=== PATIENT | male | born 1990 | race Two or more races ===

== ENCOUNTER 2021-07-08 13:14 | Inpatient (IN) | payer SELFPAY ==
[~2021-07-08] VITALS: Ht 180.3 cm; Wt 68.8 kg
[2021-07-08] MEDS ORDERED: ACETAMINOPHEN 500 MG TABLET PO ONE (14:00)
[2021-07-08] MEDS ORDERED: DEXAMETHASONE SOD PHOS 20 MG/5 ML VIAL. IV ONE (14:00)
[2021-07-08] MEDS ORDERED: PIPERACILLIN/TAZOBACTAM 4.5 GM in IV NORMAL SALINE 100ML 100 ML IV ONE (14:00)
[2021-07-08 14:08] LABS: BASO % 0 % (0-3); EOS % 0 % (0-3); HEMATOCRIT 39.4 % (39.0-53.0); HEMOGLOBIN 13.8 g/dL (13.0-17.5); LYMPH # 0.8 x10^3/uL (1.0-4.8); LYMPH % 10 % (24-48); MEAN CORPUSCULAR HEMOGLOBIN 31 pg (25-35); MEAN CORPUSCULAR HGB CONC 35 g/dL (31-37); MEAN CORPUSCULAR VOLUME 88 fL (79-100); MONO # 0.3 x10^3/uL (0.0-1.1); MONO % 3 % (0-9); NEUT # 7.7 x10^3/uL (1.8-7.7); NEUT % 87 % (31-73); PLATELET COUNT 257 x10^3/uL (140-400); RED BLOOD COUNT 4.48 x10^6/uL (4.30-5.70); RED CELL DISTRIBUTION WIDTH 12.8 % (11.5-14.5); WHITE BLOOD COUNT 8.9 x10^3/uL (4.0-11.0)
--- NOTE | 2021-07-08 14:09 | RAD ---
Exam Date: 07/08/2021 1:47 PM XR CHEST 1V Indication: Reason: fever / Spl. Instructions: / History: . FINDINGS/ IMPRESSION: Lung volumes are low. The cardiac silhouette is likely normal in size, taking into consideration low lung volumes and luis carlos ble technique. Infiltrates are seen in the lung bases bilaterally and in the right upper lobe consis tent with multifocal pneumonia. Follow-up chest radiographs to resolution following treatment are re commended. There is no appreciable pleural effusion or pneumothorax. Electronically signed by: Ken Stark MD (07/08/2021 2:07 PM) [id number]
[2021-07-08 14:23] LABS: CALCIUM 8.5 mg/dL (8.5-10.1); CREATININE 0.9 mg/dL (0.7-1.3); GFR 99.1; POTASSIUM 4.1 mmol/L (3.5-5.1)
[2021-07-08] MEDS: IV NORMAL SALINE 1000ML BAG 1,000 ML IV SCH ×3 (14:26→19:16)
[2021-07-08 14:29] LABS: ALBUMIN/GLOBULIN RATIO 0.6 (1.0-1.7); MAGNESIUM 2.2 mg/dL (1.8-2.4); TOTAL BILIRUBIN 0.3 mg/dL (0.2-1.0); TOTAL PROTEIN 7.9 g/dL (6.4-8.2)
[2021-07-08 14:45] LABS: % BANDS 2 % (0-9); % LYMPHS 11 % (24-48); % MONOS 1 % (0-10); % SEGS 86 % (35-66); PLT ESTIMATE ADEQUATE (ADEQUATE)
--- NOTE | 2021-07-08 15:35 | PDOC1 ---
History and Physical Date of Service: DOS: DATE: 07/08/21 TIME: 15:34 Chief Complaint: Chief Complain: Shortness of breath History of Present Illness: HPI: Patient is a 31-year-old Gambian-speaking male with no significant past medical history who presents to the ED with shortness of breath a few days ago but definitely got worse today.. He was actually tested for Covid 9 days ago by sending service. It came back positive a few days ago. When EMS came to pick him up he was found to be 84% on room air at home. Patient currently denies any fevers, abdominal pain, chest pain, dysuria or bloody stools or diarrhea. Patient is not vaccinated for Covid. Past Medical/Surgical History: PMH/PSH: No pertinent past medical or surgical history. Allergies: Allergies: Coded Allergies: No Known Drug Allergies (Unverified , 07/08/21) Family History: Family History: Reviewed with no relevant findings Social History: Social History: Denies alcohol, tobacco or drug abuse Current Medications: Current Medications Current Medications Sodium Chloride 1,000 ml @ 1,860 mls/hr Q33M IV Last administered on 07/08/21at 15:18; Start 07/08/21 at 14:00; Stop 07/08/21 at 15:00; Status DC Piperacillin Sod/ Tazobactam Sod 4.5 gm/Sodium Chloride 100 ml @ 200 mls/hr 1X ONCE IV Last administered on 07/08/21at 14:27; Start 07/08/21 at 14:00; Stop 07/08/21 at 14:29; Status DC Dexamethasone Sodium Phosphate (Decadron) 10 mg 1X ONCE IV Last administered on 07/08/21at 14:26; Start 07/08/21 at 14:00; Stop 07/08/21 at 14:01; Status DC Acetaminophen (Tylenol) 1,000 mg 1X ONCE PO Last administered on 07/08/21at 14:25; Start 07/08/21 at 14:00; Stop 07/08/21 at 14:01; Status DC ROS: Review of Systems Review of System REVIEW OF SYSTEMS: GENERAL: Denies weakness SKIN: No bruising, hair changes or rashes. EYES: No blurred, double or loss of vision. NOSE AND THROAT: No history of nosebleeds, hoarseness or sore throat. HEART: No history of palpitations, chest pain or shortness of breath on exertion. LUNGS: Positive for cough and shortness of breath GASTROINTESTINAL: Denies changes in appetite, nausea, vomiting, diarrhea or constipation. GENITOURINARY: No history of frequency, urgency, hesitancy or nocturia. NEUROLOGIC: Denies history of numbness, tingling, or tremor. PSYCHIATRIC: No history of panic, anxiety or depression. ENDOCRINE: No history of heat or cold intolerance, polyuria or polydipsia. EXTREMITIES: Denies joint pain, pain on walking or stiffness. Physical Exam: Vital Signs: Vital Signs Date Time Temp Pulse Resp B/P (MAP) Pulse Ox O2 Delivery O2 Flow Rate FiO2 07/08/21 15:11 106 125/75 (92) 96 Nasal Cannula 2.0 07/08/21 13:24 102.7 32 102.7 Physcial Exam: General: Well developed, well nourished, no acute distress, well appearing HEENT: Pupils equally round and reactive to light, EOMI, no discharge, normal conjunctiva Neck: Supple, no nuchal rigidity, no JVD, trachea midline, no tenderness Cardiac: RRR, no murmurs, no gallops, no rubs Chest/Lungs: CTAB, no wheeze, no rhonchi, no crackles Abdomen: soft, non-distended, no guarding, no peritoneal signs, non-tender Back: No tenderness Extremities: no edema, pulses intact, non-tender,capillary refill <3 sec bilateral upper and lower extremities, Neuro: Alert and oriented x 4, no focal deficits, normal speech Labs: Labs: Laboratory Tests Test 07/08/21 13:55 White Blood Count 8.9 x10^3/uL (4.0-11.0) Red Blood Count 4.48 x10^6/uL (4.30-5.70) Hemoglobin 13.8 g/dL (13.0-17.5) Hematocrit 39.4 % (39.0-53.0) Mean Corpuscular Volume 88 fL (79-100) Mean Corpuscular Hemoglobin 31 pg (25-35) Mean Corpuscular Hemoglobin Concent 35 g/dL (31-37) Red Cell Distribution Width 12.8 % (11.5-14.5) Platelet Count 257 x10^3/uL (140-400) Neutrophils (%) (Auto) 87 % (31-73) Lymphocytes (%) (Auto) 10 % (24-48) Monocytes (%) (Auto) 3 % (0-9) Eosinophils (%) (Auto) 0 % (0-3) Basophils (%) (Auto) 0 % (0-3) Neutrophils # (Auto) 7.7 x10^3/uL (1.8-7.7) Lymphocytes # (Auto) 0.8 x10^3/uL (1.0-4.8) Monocytes # (Auto) 0.3 x10^3/uL (0.0-1.1) Eosinophils # (Auto) 0.0 x10^3/uL (0.0-0.7) Basophils # (Auto) 0.0 x10^3/uL (0.0-0.2) Segmented Neutrophils % 86 % (35-66) Band Neutrophils % 2 % (0-9) Lymphocytes % 11 % (24-48) Monocytes % 1 % (0-10) Platelet Estimate Adequate (ADEQUATE) Sodium Level 133 mmol/L (136-145) Potassium Level 4.1 mmol/L (3.5-5.1) Chloride Level 96 mmol/L (98-107) Carbon Dioxide Level 28 mmol/L (21-32) Anion Gap 9 (6-14) Blood Urea Nitrogen 8 mg/dL (8-26) Creatinine 0.9 mg/dL (0.7-1.3) Estimated GFR (Cockcroft-Gault) 99.1 BUN/Creatinine Ratio 9 (6-20) Glucose Level 138 mg/dL (70-99) Lactic Acid Level 1.4 mmol/L (0.4-2.0) Calcium Level 8.5 mg/dL (8.5-10.1) Magnesium Level 2.2 mg/dL (1.8-2.4) Total Bilirubin 0.3 mg/dL (0.2-1.0) Aspartate Amino Transf (AST/SGOT) 47 U/L (15-37) Alanine Aminotransferase (ALT/SGPT) 101 U/L (16-63) Alkaline Phosphatase 53 U/L (46-116) Total Protein 7.9 g/dL (6.4-8.2) Albumin 3.0 g/dL (3.4-5.0) Albumin/Globulin Ratio 0.6 (1.0-1.7) Laboratory Tests Test 07/08/21 13:55 White Blood Count 8.9 x10^3/uL (4.0-11.0) Red Blood Count 4.48 x10^6/uL (4.30-5.70) Hemoglobin 13.8 g/dL (13.0-17.5) Hematocrit 39.4 % (39.0-53.0) Mean Corpuscular Volume 88 fL (79-100) Mean Corpuscular Hemoglobin 31 pg (25-35) Mean Corpuscular Hemoglobin Concent 35 g/dL (31-37) Red Cell Distribution Width 12.8 % (11.5-14.5) Platelet Count 257 x10^3/uL (140-400) Neutrophils (%) (Auto) 87 % (31-73) Lymphocytes (%) (Auto) 10 % (24-48) Monocytes (%) (Auto) 3 % (0-9) Eosinophils (%) (Auto) 0 % (0-3) Basophils (%) (Auto) 0 % (0-3) Neutrophils # (Auto) 7.7 x10^3/uL (1.8-7.7) Lymphocytes # (Auto) 0.8 x10^3/uL (1.0-4.8) Monocytes # (Auto) 0.3 x10^3/uL (0.0-1.1) Eosinophils # (Auto) 0.0 x10^3/uL (0.0-0.7) Basophils # (Auto) 0.0 x10^3/uL (0.0-0.2) Segmented Neutrophils % 86 % (35-66) Band Neutrophils % 2 % (0-9) Lymphocytes % 11 % (24-48) Monocytes % 1 % (0-10) Platelet Estimate Adequate (ADEQUATE) Sodium Level 133 mmol/L (136-145) Potassium Level 4.1 mmol/L (3.5-5.1) Chloride Level 96 mmol/L (98-107) Carbon Dioxide Level 28 mmol/L (21-32) Anion Gap 9 (6-14) Blood Urea Nitrogen 8 mg/dL (8-26) Creatinine 0.9 mg/dL (0.7-1.3) Estimated GFR (Cockcroft-Gault) 99.1 BUN/Creatinine Ratio 9 (6-20) Glucose Level 138 mg/dL (70-99) Lactic Acid Level 1.4 mmol/L (0.4-2.0) Calcium Level 8.5 mg/dL (8.5-10.1) Magnesium Level 2.2 mg/dL (1.8-2.4) Total Bilirubin 0.3 mg/dL (0.2-1.0) Aspartate Amino Transf (AST/SGOT) 47 U/L (15-37) Alanine Aminotransferase (ALT/SGPT) 101 U/L (16-63) Alkaline Phosphatase 53 U/L (46-116) Total Protein 7.9 g/dL (6.4-8.2) Albumin 3.0 g/dL (3.4-5.0) Albumin/Globulin Ratio 0.6 (1.0-1.7) Images: Images PROCEDURE: PORTABLE CHEST 1V Exam Date: 07/08/2021 1:47 PM XR CHEST 1V Indication: Reason: fever / Spl. Instructions: / History: . FINDINGS/ IMPRESSION: Lung volumes are low. The cardiac silhouette is likely normal in size, taking into consideration low lung volumes and portable technique. Infiltrates are seen in the lung bases bilaterally and in the right upper lobe consistent with multifocal pneumonia. Follow-up chest radiographs to resolution following treatment are recommended. There is no appreciable pleural effusion or pneumothorax. Assessment/Plan Assessment/Plan Acute hypoxic respiratory failure Covid pneumonia Acute electrolyte derangementhyponatremia, hypochloremia due to volume depletion Mild transaminitis Lymphopenia Moderate protein malnutrition Admit to medicine for further management Pulmonology consult Continue IV thiamine and vitamin C IV 4 mg dexamethasone Daily Pending ferritin, LDH, CRP, D-dimer labs Titrate O2 supplementation to maintain O2 saturation greater than 92% [] for DVT prophylaxis [] GI prophylaxis ADA diet Full code Discussed with RN and SW Disposition [] Surrogate decision maker is the [] Justifications for Admission Other Justification VIKRAM MOLINA MD Jul 08, 2021 15:35
[2021-07-08] MEDS ORDERED: PROCHLORPERAZINE 10 MG/2 ML VIAL. IV PRN (15:45)
[2021-07-08] MEDS ORDERED: DEXTROSE 50% 25 GM / 50ML DISP.SYRIN. IV PRN (15:45)
[2021-07-08] MEDS ORDERED: SENNOSIDES 8.6 MG TABLET PO PRN (15:45)
[2021-07-08] MEDS ORDERED: ACETAMINOPHEN 325 MG TABLET. PO PRN ×2 (15:45→16:30)
[2021-07-08] MEDS ORDERED: ONDANSETRON PF 4 MG/2 ML VIAL. IVP PRN ×2 (15:45→16:30)
[2021-07-08] MEDS ORDERED: DOCUSATE SODIUM 100 MG CAPSULE. PO PRN (15:45)
[2021-07-08] MEDS ORDERED: MORPHINE SULFATE 2 MG/ML INJ. IVP PRN (16:30)
[2021-07-08 16:49] LABS: C-REACTIVE PROTEIN 119.5 mg/L (0-3.3)
--- NOTE | 2021-07-08 17:00 | PHYS DOC ---
Past Medical History Past Surgical History: No Surgical History Smoking Status: Never Smoker Alcohol Use: Rarely General Adult EDM: Chief Complaint: SHORTNESS OF BREATH HPI: HPI: Patient is a 31 year old male with no significant medical history who presents the ED today complaining of shortness of breath, cough, symptoms have gotten worse today. Patient states he was diagnosed with COVID-19 9 days ago. EMS reports patient was 84% on room air at home. Historian was patient using [facility] specialist line for [place] Review of Systems: Review of Systems: Constitutional: Denies fever or chills. [] Eyes: Denies change in visual acuity. [] HENT: Denies nasal congestion or sore throat. [] Respiratory: Reports cough and shortness of breath tness of breath. [] Cardiovascular: Denies chest pain or edema. [] GI: Denies abdominal pain, nausea, vomiting, bloody stools or diarrhea. [] : Denies dysuria. [] Musculoskeletal: Denies back pain or joint pain. [] Integument: Denies rash. [] Neurologic: Denies headache, focal weakness or sensory changes. [] Psychiatric: Denies depression or anxiety. [] Heart Score: C/O Chest Pain: N/A Risk Factors: Risk Factors: DM, Current or recent (<one month) smoker, HTN, HLP, family history of CAD, obesity. Risk Scores: Score 0 - 3: 2.5% MACE over next 6 weeks - Discharge Home Score 4 - 6: 20.3% MACE over next 6 weeks - Admit for Clinical Observation Score 7 - 10: 72.7% MACE over next 6 weeks - Early Invasive Strategies Current Medications: Current Medications Medications (Trade) Dose Ordered Sig/Maco Start Time Stop Time Status Last Admin Dose Admin Acetaminophen (Tylenol) 1,000 mg 1X ONCE 07/08/21 14:00 07/08/21 14:01 DC 07/08/21 14:25 1,000 MG Dexamethasone Sodium Phosphate (Decadron) 10 mg 1X ONCE 07/08/21 14:00 07/08/21 14:01 DC 07/08/21 14:26 10 MG Piperacillin Sod/ Tazobactam Sod 4.5 gm/Sodium Chloride 100 ml @ 200 mls/hr 1X ONCE 07/08/21 14:00 07/08/21 14:29 DC 07/08/21 14:27 200 MLS/HR Sodium Chloride 1,000 ml @ 1,860 mls/hr Q33M 07/08/21 14:00 07/08/21 15:00 DC 07/08/21 15:18 1,860 MLS/HR Allergies: Allergies: Allergies Coded Allergies Type Severity Reaction Last Updated Verified No Known Drug Allergies 07/08/21 No Physical Exam: PE: Constitutional: Well developed, well nourished, no acute distress, non-toxic appearance. [] HENT: Normocephalic, atraumatic, bilateral external ears normal, oropharynx moist, no oral exudates, nose normal. [] Eyes: PERRLA, EOMI, conjunctiva normal, no discharge. [] Neck: Normal range of motion, no tenderness, supple, no stridor. [] Cardiovascular: Tachycardic Lungs & Thorax: Dyspneic, diminished breath sounds, Abdomen: Bowel sounds normal, soft, no tenderness, no masses, no pulsatile masses. [] Skin: Warm, dry, no erythema, no rash. [] Back: No tenderness, no CVA tenderness. [] Extremities: No tenderness, no cyanosis, no clubbing, ROM intact, no edema. [] Neurologic: Alert and oriented X 3, normal motor function, normal sensory function, no focal deficits noted. [] Psychologic: Affect normal, judgement normal, mood normal. [] Current Patient Data: Labs: Laboratory Tests Test 07/08/21 13:55 White Blood Count 8.9 x10^3/uL (4.0-11.0) Red Blood Count 4.48 x10^6/uL (4.30-5.70) Hemoglobin 13.8 g/dL (13.0-17.5) Hematocrit 39.4 % (39.0-53.0) Mean Corpuscular Volume 88 fL (79-100) Mean Corpuscular Hemoglobin 31 pg (25-35) Mean Corpuscular Hemoglobin Concent 35 g/dL (31-37) Red Cell Distribution Width 12.8 % (11.5-14.5) Platelet Count 257 x10^3/uL (140-400) Neutrophils (%) (Auto) 87 % (31-73) H Lymphocytes (%) (Auto) 10 % (24-48) L Monocytes (%) (Auto) 3 % (0-9) Eosinophils (%) (Auto) 0 % (0-3) Basophils (%) (Auto) 0 % (0-3) Neutrophils # (Auto) 7.7 x10^3/uL (1.8-7.7) Lymphocytes # (Auto) 0.8 x10^3/uL (1.0-4.8) L Monocytes # (Auto) 0.3 x10^3/uL (0.0-1.1) Eosinophils # (Auto) 0.0 x10^3/uL (0.0-0.7) Basophils # (Auto) 0.0 x10^3/uL (0.0-0.2) Segmented Neutrophils % 86 % (35-66) H Band Neutrophils % 2 % (0-9) Lymphocytes % 11 % (24-48) L Monocytes % 1 % (0-10) Platelet Estimate Adequate (ADEQUATE) Sodium Level 133 mmol/L (136-145) L Potassium Level 4.1 mmol/L (3.5-5.1) Chloride Level 96 mmol/L (98-107) L Carbon Dioxide Level 28 mmol/L (21-32) Anion Gap 9 (6-14) Blood Urea Nitrogen 8 mg/dL (8-26) Creatinine 0.9 mg/dL (0.7-1.3) Estimated GFR (Cockcroft-Gault) 99.1 BUN/Creatinine Ratio 9 (6-20) Glucose Level 138 mg/dL (70-99) H Lactic Acid Level 1.4 mmol/L (0.4-2.0) Calcium Level 8.5 mg/dL (8.5-10.1) Magnesium Level 2.2 mg/dL (1.8-2.4) Total Bilirubin 0.3 mg/dL (0.2-1.0) Aspartate Amino Transferase (AST) 47 U/L (15-37) H Alanine Aminotransferase (ALT) 101 U/L (16-63) H Alkaline Phosphatase 53 U/L (46-116) Total Protein 7.9 g/dL (6.4-8.2) Albumin 3.0 g/dL (3.4-5.0) L Albumin/Globulin Ratio 0.6 (1.0-1.7) L Laboratory Tests 07/08/21 13:55 Laboratory Tests 07/08/21 13:55 Vital Signs: Vital Signs Date Time Temp Pulse Resp B/P (MAP) Pulse Ox O2 Delivery O2 Flow Rate FiO2 07/08/21 16:26 101.1 105 124/74 (91) 96 Nasal Cannula 5.0 101.1 07/08/21 13:24 32 EKG: EKG: [] Radiology/Procedures: Radiology/Procedures: []PROCEDURE: PORTABLE CHEST 1V Exam Date: 07/08/2021 1:47 PM XR CHEST 1V Indication: Reason: fever / Spl. Instructions: / History: . FINDINGS/ IMPRESSION: Lung volumes are low. The cardiac silhouette is likely normal in size, taking into consideration low lung volumes and portable technique. Infiltrates are seen in the lung bases bilaterally and in the right upper lobe consistent with multifocal pneumonia. Follow-up chest radiographs to resolution following treatment are recommended. There is no appreciable pleural effusion or pneumothorax. Electronically signed by: Fabby Stark MD (07/08/2021 2:07 PM) [id number] DICTATED and SIGNED BY: FABBY STARK MD DATE: 07/08/21 [id number] 0 Course & Med Decision Making: Course & Med Decision Making Pertinent Labs and Imaging studies reviewed. (See chart for details) This is a 31-year-old male patient presented to the ED today with shortness of breath, cough, fever. Patient was diagnosed with COVID-19 9 days ago. Symptoms of gotten worse. O2 sats were 84% on room air at home. Arrives in the ED tachypneic, febrile. Vitals on arrival on arrival to the ED temperature 102.7, heart rate 112, respiration 32 on room air, blood pressure 128/75, O2 sats 84% on room air on arrival. Was put on 4 L of oxygen currently 96%. CBC with a normal WBC, CMP with AST of 47, ALT of 101. Chest x-ray noted for bilateral pneumonia. Lactic is normal. Patient was started on the sepsis protocol including IV fluids and antibiotics. Spoke with Dr. Sutton who accepted patient for admission Renee Disclaimer: Renee Disclaimer: This electronic medical record was generated, in whole or in part, using a voice recognition dictation system. Departure Departure Impression: Primary Impression: Bilateral pneumonia Qualified Codes: J18.9 - Pneumonia, unspecified organism Additional Impressions: Fever Qualified Codes: R50.9 - Fever, unspecified Hypoxia Lab test positive for detection of COVID-19 virus Disposition: 09 ADMITTED INPATIENT Condition: STABLE Referrals: NO PCP (PCP) NATHALIE FAIR APRN Jul 08, 2021 17:00
[2021-07-08 17:45] VITALS: BP 111/65
[2021-07-08 19:00] VITALS: BP 124/77
--- NOTE | 2021-07-08 19:00 | NUR ---
Patient has been admitted to room 504. Patient alert and oriented. Has been placed on library monitor. O2 sat 93-94% at rest, down to 88-89% with extended coughing.
[2021-07-08] MEDS: PANTOPRAZOLE 40 MG TABLET.DR. PO SCH (19:15)
[2021-07-08] MEDS: THIAMINE 100 MG TABLET. PO SCH (19:15)
[2021-07-08] MEDS: ZINC SULFATE 220 MG CAPSULE. PO SCH (19:18)
[2021-07-08] MEDS: ENOXAPARIN 40 MG/0.4 ML SYRINGE. SQ SCH (21:54)
[2021-07-08] MEDS: methylPREDNISolone SOD SUCC PF 125 MG/2 ML VIAL. IV SCH (21:55)
[2021-07-08] MEDS: ASCORBIC ACID 1,000 MG TABLET PO SCH (21:55)
[2021-07-08] MEDS ORDERED: REMDESIVIR LOAD in IV NORMAL SALINE 250ML TV IV ONE (22:30)
[2021-07-09 03:00] VITALS: BP 128/86
[2021-07-09] MEDS: IV NORMAL SALINE 1000ML BAG 1,000 ML IV SCH ×3 (06:13→16:49)
[2021-07-09] MEDS: methylPREDNISolone SOD SUCC PF 125 MG/2 ML VIAL. IV SCH ×3 (06:13→21:11)
[2021-07-09 07:00] VITALS: BP 147/89
[2021-07-09] MEDS: PANTOPRAZOLE 40 MG TABLET.DR. PO SCH (07:42)
[2021-07-09 08:45] LABS: BASO % 0 % (0-3); EOS % 0 % (0-3); HEMATOCRIT 36.5 % (39.0-53.0); HEMOGLOBIN 12.6 g/dL (13.0-17.5); LYMPH # 0.9 x10^3/uL (1.0-4.8); LYMPH % 13 % (24-48); MEAN CORPUSCULAR HEMOGLOBIN 31 pg (25-35); MEAN CORPUSCULAR HGB CONC 35 g/dL (31-37); MEAN CORPUSCULAR VOLUME 90 fL (79-100); MONO # 0.2 x10^3/uL (0.0-1.1); MONO % 3 % (0-9); NEUT # 6.2 x10^3/uL (1.8-7.7); NEUT % 84 % (31-73); PLATELET COUNT 285 x10^3/uL (140-400); RED BLOOD COUNT 4.08 x10^6/uL (4.30-5.70); RED CELL DISTRIBUTION WIDTH 12.8 % (11.5-14.5); WHITE BLOOD COUNT 7.4 x10^3/uL (4.0-11.0)
[2021-07-09 09:04] LABS: CALCIUM 8.2 mg/dL (8.5-10.1); CREATININE 0.8 mg/dL (0.7-1.3); GFR 113.5; MAGNESIUM 2.4 mg/dL (1.8-2.4); PHOSPHORUS 3.7 mg/dL (2.6-4.7); POTASSIUM 3.9 mmol/L (3.5-5.1)
[2021-07-09] MEDS: THIAMINE 100 MG TABLET. PO SCH (09:05)
[2021-07-09] MEDS: ASCORBIC ACID 1,000 MG TABLET PO SCH ×3 (09:06→21:10)
[2021-07-09] MEDS: ZINC SULFATE 220 MG CAPSULE. PO SCH (09:06)
--- NOTE | 2021-07-09 10:51 | NUR ---
SW following. Discussed with RN, pt from home with spouse, 7L (does not use oxygen at home), regular diet. COVID-19 positive. Med Assist following for self pay status. SW will continue to follow.
[2021-07-09 11:00] VITALS: BP 137/89
--- NOTE | 2021-07-09 12:49 | NUR ---
Pt's O2 requirements increasing. Previously on 7L high flow NC, sats dropped to 82-85%. 10L nonrebreather plus 5L NC placed on pt, sats increased to 92-94%. Pt reporting anxiety. This RN received telephone orders from Dr. Sutton for Ativan 0.25 mg PO Q6 PRN. Will administer.
--- NOTE | 2021-07-09 12:55 | NUR ---
This RN nonadministered IV fluids. Previous bag still infusing. Refer to EMAR for additional details.
[2021-07-09] MEDS ORDERED: LORazepam 0.5 MG TABLET PO PRN (13:00)
--- NOTE | 2021-07-09 13:10 | PDOC ---
[employer] PROGRESS NOTE Date of Service DOS: DATE: 07/09/21 TIME: 13:06 Chief Complaint Chief Complaint Shortness of breath History of Present Illness History of Present Illness Patient is a 31-year-old Croatian-speaking male with no significant past medical history who presents to the ED with shortness of breath a few days ago but definitely got worse today.. He was actually tested for Covid 9 days ago by sending service. It came back positive a few days ago. When EMS came to pick him up he was found to be 84% on room air at home. Patient currently denies any fevers, abdominal pain, chest pain, dysuria or bloody stools or diarrhea. Patient is not vaccinated for Covid. 07/09/21 Is able to bedside. She is on a significant amount of nasal cannula however no signs of worsening respiratory status. No complaints. Continuing Covid protocol. Will wean oxygen as tolerated. Vitals/I&O Vitals/I&O: Vital Signs Date Time Temp Pulse Resp B/P (MAP) Pulse Ox O2 Delivery O2 Flow Rate FiO2 07/09/21 07:52 Nasal Cannula 7.0 07/09/21 07:00 99.3 91 18 147/89 (108) 88 99.3 I & O 0 07/08/21 07/08/21 07/09/21 15:00 23:00 07:00 Intake Total 280 ml Output Total 700 ml 750 ml Balance -420 ml -750 ml Physical Exam General: Alert, Oriented X3, Cooperative Heart: Regular rate, Normal S1, Normal S2 Lungs: Other (Nonlabored, decreased air entry) Abdomen: Normal bowel sounds, Soft, No tenderness Extremities: No clubbing, No edema, Normal pulses Skin: No rashes, No significant lesion Labs Labs: Laboratory Tests Test 07/08/21 13:55 07/09/21 06:00 White Blood Count 8.9 x10^3/uL (4.0-11.0) 7.4 x10^3/uL (4.0-11.0) Red Blood Count 4.48 x10^6/uL (4.30-5.70) 4.08 x10^6/uL (4.30-5.70) Hemoglobin 13.8 g/dL (13.0-17.5) 12.6 g/dL (13.0-17.5) Hematocrit 39.4 % (39.0-53.0) 36.5 % (39.0-53.0) Mean Corpuscular Volume 88 fL (79-100) 90 fL (79-100) Mean Corpuscular Hemoglobin 31 pg (25-35) 31 pg (25-35) Mean Corpuscular Hemoglobin Concent 35 g/dL (31-37) 35 g/dL (31-37) Red Cell Distribution Width 12.8 % (11.5-14.5) 12.8 % (11.5-14.5) Platelet Count 257 x10^3/uL (140-400) 285 x10^3/uL (140-400) Neutrophils (%) (Auto) 87 % (31-73) 84 % (31-73) Lymphocytes (%) (Auto) 10 % (24-48) 13 % (24-48) Monocytes (%) (Auto) 3 % (0-9) 3 % (0-9) Eosinophils (%) (Auto) 0 % (0-3) 0 % (0-3) Basophils (%) (Auto) 0 % (0-3) 0 % (0-3) Neutrophils # (Auto) 7.7 x10^3/uL (1.8-7.7) 6.2 x10^3/uL (1.8-7.7) Lymphocytes # (Auto) 0.8 x10^3/uL (1.0-4.8) 0.9 x10^3/uL (1.0-4.8) Monocytes # (Auto) 0.3 x10^3/uL (0.0-1.1) 0.2 x10^3/uL (0.0-1.1) Eosinophils # (Auto) 0.0 x10^3/uL (0.0-0.7) 0.0 x10^3/uL (0.0-0.7) Basophils # (Auto) 0.0 x10^3/uL (0.0-0.2) 0.0 x10^3/uL (0.0-0.2) Segmented Neutrophils % 86 % (35-66) Band Neutrophils % 2 % (0-9) Lymphocytes % 11 % (24-48) Monocytes % 1 % (0-10) Platelet Estimate Adequate (ADEQUATE) Sodium Level 133 mmol/L (136-145) 139 mmol/L (136-145) Potassium Level 4.1 mmol/L (3.5-5.1) 3.9 mmol/L (3.5-5.1) Chloride Level 96 mmol/L (98-107) 104 mmol/L (98-107) Carbon Dioxide Level 28 mmol/L (21-32) 25 mmol/L (21-32) Anion Gap 9 (6-14) 10 (6-14) Blood Urea Nitrogen 8 mg/dL (8-26) 11 mg/dL (8-26) Creatinine 0.9 mg/dL (0.7-1.3) 0.8 mg/dL (0.7-1.3) Estimated GFR (Cockcroft-Gault) 99.1 113.5 BUN/Creatinine Ratio 9 (6-20) Glucose Level 138 mg/dL (70-99) 141 mg/dL (70-99) Lactic Acid Level 1.4 mmol/L (0.4-2.0) Calcium Level 8.5 mg/dL (8.5-10.1) 8.2 mg/dL (8.5-10.1) Magnesium Level 2.2 mg/dL (1.8-2.4) 2.4 mg/dL (1.8-2.4) Total Bilirubin 0.3 mg/dL (0.2-1.0) Aspartate Amino Transf (AST/SGOT) 47 U/L (15-37) Alanine Aminotransferase (ALT/SGPT) 101 U/L (16-63) Alkaline Phosphatase 53 U/L (46-116) Lactate Dehydrogenase 542 U/L (85-227) C-Reactive Protein, Quantitative 119.5 mg/L (0-3.3) Total Protein 7.9 g/dL (6.4-8.2) Albumin 3.0 g/dL (3.4-5.0) Albumin/Globulin Ratio 0.6 (1.0-1.7) Procalcitonin 0.17 ng/mL (0.00-0.10) Phosphorus Level 3.7 mg/dL (2.6-4.7) Review of Systems Review of Systems: Improving shortness of breath Assessment and Plan Assessmemt and Plan Problems Medical Problems: (1) Bilateral pneumonia Status: Acute (2) Fever Status: Acute (3) Hypoxia Status: Acute (4) Lab test positive for detection of COVID-19 virus Status: Acute Assessment/Plan Acute hypoxic respiratory failure Covid pneumonia Acute electrolyte derangementhyponatremia, hypochloremia due to volume depletion Mild transaminitis Lymphopenia Moderate protein malnutrition Admit to medicine for further management Pulmonology consult Continue IV thiamine and vitamin C IV 4 mg dexamethasone Daily Titrate O2 supplementation to maintain O2 saturation greater than 92% Enoxaparin for DVT prophylaxis ADA diet Full code Discussed with RN and SW Comment Review of Relevant I have reviewed the following items irving (where applicable) has been applied. Medications: Current Medications Medications (Trade) Dose Ordered Sig/Maco Route PRN Reason Start Time Stop Time Status Last Admin Dose Admin Sodium Chloride 1,000 ml @ 1,860 mls/hr Q33M IV 07/08/21 14:00 07/08/21 15:00 DC 07/08/21 15:18 Piperacillin Sod/ Tazobactam Sod 4.5 gm/Sodium Chloride 100 ml @ 200 mls/hr 1X ONCE IV 07/08/21 14:00 07/08/21 14:29 DC 07/08/21 14:27 Dexamethasone Sodium Phosphate (Decadron) 10 mg 1X ONCE IV 07/08/21 14:00 07/08/21 14:01 DC 07/08/21 14:26 Acetaminophen (Tylenol) 1,000 mg 1X ONCE PO 07/08/21 14:00 07/08/21 14:01 DC 07/08/21 14:25 Ascorbic Acid (Vitamin C) 3,000 mg TID PO 07/08/21 21:00 07/09/21 09:06 Methylprednisolone Sodium Succinate (SOLU-Medrol 125MG VIAL) 125 mg Q8HRS IV 07/08/21 22:00 07/09/21 06:13 Thiamine Mononitrate (Vitamin B-1) 300 mg DAILY PO 07/08/21 16:00 07/09/21 09:05 Zinc Sulfate (Orazinc) 220 mg DAILY PO 07/08/21 16:00 07/09/21 09:06 Sodium Chloride 1,000 ml @ 100 mls/hr Q10H IV 07/08/21 17:00 07/09/21 06:13 Acetaminophen (Tylenol) 650 mg PRN Q4HRS PRN PO TEMP OVER 100.4F OR MILD PAIN 07/08/21 15:45 07/09/21 00:04 Enoxaparin Sodium (Lovenox 40mg Syringe) 40 mg Q24H SQ 07/08/21 21:00 07/08/21 21:54 Pantoprazole Sodium (Protonix) 40 mg DAILYAC PO 07/08/21 16:30 07/09/21 07:42 Remdesivir 200 mg/ Sodium Chloride 210 ml @ 210 mls/hr 1X ONCE IV 07/08/21 22:30 07/08/21 23:29 DC 07/09/21 00:04 Lorazepam (Ativan) 0.25 mg Q6HRS PRN PO ANXIETY / AGITATION 07/09/21 13:00 07/09/21 12:59 Justifications for Admission Other Justification Hypoxic respiratory failure SEJAL FERNANDEZ MD Jul 09, 2021 13:10
[2021-07-09 15:00] VITALS: BP 133/79
--- NOTE | 2021-07-09 16:53 | NUR ---
Pt's O2 titrated to 14 L nonrebreather, sats 94%. Pt less anxious at this time. Will monitor for changes.
[2021-07-09 19:00] VITALS: BP 141/94
[2021-07-09] MEDS: REMDESIVIR 100mg in NORMAL SALINE 250ML X 4 DAYS IV SCH (21:10)
[2021-07-09] MEDS: ENOXAPARIN 40 MG/0.4 ML SYRINGE. SQ SCH (21:11)
[2021-07-09 23:00] VITALS: BP 130/83
[2021-07-10 03:20] VITALS: BP 140/90
[2021-07-10] MEDS: IV NORMAL SALINE 1000ML BAG 1,000 ML IV SCH ×2 (05:38→16:08)
[2021-07-10] MEDS: methylPREDNISolone SOD SUCC PF 125 MG/2 ML VIAL. IV SCH ×3 (05:38→21:46)
[2021-07-10 05:39] VITALS: BP 126/78
[2021-07-10 07:09] LABS: BASO % 0 % (0-3); EOS % 0 % (0-3); HEMATOCRIT 36.5 % (39.0-53.0); HEMOGLOBIN 12.8 g/dL (13.0-17.5); LYMPH # 1.4 x10^3/uL (1.0-4.8); LYMPH % 16 % (24-48); MEAN CORPUSCULAR HEMOGLOBIN 31 pg (25-35); MEAN CORPUSCULAR HGB CONC 35 g/dL (31-37); MEAN CORPUSCULAR VOLUME 89 fL (79-100); MONO # 0.6 x10^3/uL (0.0-1.1); MONO % 7 % (0-9); NEUT # 6.7 x10^3/uL (1.8-7.7); NEUT % 77 % (31-73); PLATELET COUNT 346 x10^3/uL (140-400); RED BLOOD COUNT 4.11 x10^6/uL (4.30-5.70); RED CELL DISTRIBUTION WIDTH 13.1 % (11.5-14.5); WHITE BLOOD COUNT 8.7 x10^3/uL (4.0-11.0)
[2021-07-10 07:25] LABS: CALCIUM 8.2 mg/dL (8.5-10.1); CREATININE 0.7 mg/dL (0.7-1.3); GFR 132.4; MAGNESIUM 2.5 mg/dL (1.8-2.4)
--- NOTE | 2021-07-10 08:55 | NUR ---
This RN notified Dr. Belcher that pt's O2 sat 89% on 15 L nonrebreather. Orders received to place 15 L high flow NC in addition to nonrebreather. Dr. Belcher stated he would be up to see pt at a later time.
[2021-07-10] MEDS: THIAMINE 100 MG TABLET. PO SCH (08:58)
[2021-07-10] MEDS: PANTOPRAZOLE 40 MG TABLET.DR. PO SCH (08:58)
[2021-07-10] MEDS: ZINC SULFATE 220 MG CAPSULE. PO SCH (08:58)
[2021-07-10] MEDS: ASCORBIC ACID 1,000 MG TABLET PO SCH ×3 (09:46→21:46)
--- NOTE | 2021-07-10 10:52 | NUR ---
SW following. Discussed with RN, pt from home with spouse, 15L NRB and 15L high flow nasal canula. Pulmonology following. COVID-19 positive. Med Assist following for self pay status. SW will continue to follow.
--- NOTE | 2021-07-10 10:55 | PDOC ---
[facility] PROGRESS NOTE Date of Service DOS: DATE: 07/10/21 TIME: 10:52 Chief Complaint Chief Complaint Shortness of breath History of Present Illness History of Present Illness Patient is a 31-year-old Zambian-speaking male with no significant past medical history who presents to the ED with shortness of breath a few days ago but definitely got worse today.. He was actually tested for Covid 9 days ago by sending service. It came back positive a few days ago. When EMS came to pick him up he was found to be 84% on room air at home. Patient currently denies any fevers, abdominal pain, chest pain, dysuria or bloody stools or diarrhea. Patient is not vaccinated for Covid. 07/09/21 Is able to bedside. She is on a significant amount of nasal cannula however no signs of worsening respiratory status. No complaints. Continuing Covid protocol. Will wean oxygen as tolerated. 07/10/2021 No acute events overnight. Patient saturating 95% and increasing O2 requirements to 15 L nonrebreather. T-max of 99.9 overnight. We will continue with current Covid protocol treatment. Patient's chart, labs, images were reviewed and discussed with RN In addition to my E/M visit, advance care planning done with A total time of 20 minutes was spent from 1030 to 1050 over the phone in discussion with the sister regarding the patient's goals of care, CODE STATUS. Vitals/I&O Vitals/I&O: Vital Signs Date Time Temp Pulse Resp B/P (MAP) Pulse Ox O2 Delivery O2 Flow Rate FiO2 07/10/21 08:55 Non-Rebreather 15.0 07/10/21 05:39 99.2 93 36 126/78 (94) 95 99.2 I & O 07/09/21 07/09/21 07/10/21 15:00 23:00 07:00 Intake Total 180 ml 1230 ml Output Total 800 ml 1 ml 1025 ml Balance -620 ml 1229 ml -1025 ml Physical Exam General: Alert, Oriented X3, Cooperative Heart: Regular rate, Normal S1, Normal S2 Lungs: Other (Nonlabored, decreased air entry) Abdomen: Normal bowel sounds, Soft, No tenderness Extremities: No clubbing, No edema, Normal pulses Skin: No rashes, No significant lesion Labs Labs: Laboratory Tests Test 8/13/21 06:10 White Blood Count 8.7 x10^3/uL (4.0-11.0) Red Blood Count 4.11 x10^6/uL (4.30-5.70) Hemoglobin 12.8 g/dL (13.0-17.5) Hematocrit 36.5 % (39.0-53.0) Mean Corpuscular Volume 89 fL (79-100) Mean Corpuscular Hemoglobin 31 pg (25-35) Mean Corpuscular Hemoglobin Concent 35 g/dL (31-37) Red Cell Distribution Width 13.1 % (11.5-14.5) Platelet Count 346 x10^3/uL (140-400) Neutrophils (%) (Auto) 77 % (31-73) Lymphocytes (%) (Auto) 16 % (24-48) Monocytes (%) (Auto) 7 % (0-9) Eosinophils (%) (Auto) 0 % (0-3) Basophils (%) (Auto) 0 % (0-3) Neutrophils # (Auto) 6.7 x10^3/uL (1.8-7.7) Lymphocytes # (Auto) 1.4 x10^3/uL (1.0-4.8) Monocytes # (Auto) 0.6 x10^3/uL (0.0-1.1) Eosinophils # (Auto) 0.0 x10^3/uL (0.0-0.7) Basophils # (Auto) 0.0 x10^3/uL (0.0-0.2) Sodium Level 137 mmol/L (136-145) Potassium Level 4.0 mmol/L (3.5-5.1) Chloride Level 103 mmol/L (98-107) Carbon Dioxide Level 27 mmol/L (21-32) Anion Gap 7 (6-14) Blood Urea Nitrogen 14 mg/dL (8-26) Creatinine 0.7 mg/dL (0.7-1.3) Estimated GFR (Cockcroft-Gault) 132.4 Glucose Level 150 mg/dL (70-99) Calcium Level 8.2 mg/dL (8.5-10.1) Magnesium Level 2.5 mg/dL (1.8-2.4) Assessment and Plan Assessmemt and Plan Problems Medical Problems: (1) Bilateral pneumonia Status: Acute (2) Fever Status: Acute (3) Hypoxia Status: Acute (4) Lab test positive for detection of COVID-19 virus Status: Acute Comment Review of Relevant I have reviewed the following items irving (where applicable) has been applied. Medications: Current Medications Medications (Trade) Dose Ordered Sig/Maco Route PRN Reason Start Time Stop Time Status Last Admin Dose Admin Remdesivir 100 mg/ Sodium Chloride 230 ml @ 460 mls/hr Q24H IV 07/09/21 21:00 07/12/21 21:29 07/09/21 21:10 Lorazepam (Ativan) 0.25 mg Q6HRS PRN PO ANXIETY / AGITATION 07/09/21 13:00 07/09/21 12:59 Justifications for Admission Other Justification Hypoxic respiratory failure VIKRAM MOLINA MD Jul 10, 2021 10:55
[2021-07-10 11:00] VITALS: BP 141/87
--- NOTE | 2021-07-10 11:12 | CONS ---
DATE OF CONSULTATION: 07/10/2021 PULMONARY CONSULTATION REASON FOR CONSULTATION: Respiratory failure, COVID-19. HISTORY OF PRESENT ILLNESS: The patient is a 31-year-old male who is COVID positive. He never received vaccination. He was brought into the hospital with hypoxia and dyspnea. His oxygen requirement has increased. He is currently on 100% nonrebreather mask and in addition 15 liters high-flow cannula. He had a fever of 99.9. The patient is receiving remdesivir and IV Solu-Medrol. Due to language barrier, cannot obtain much history. PAST MEDICAL HISTORY: Unremarkable. PAST SURGICAL HISTORY: Unremarkable. ALLERGIES: None. MEDICATIONS: Reviewed as listed in the [facility]AD. REVIEW OF SYSTEMS: Unable to obtain from the patient. SOCIAL HISTORY: Nonsmoker. Not vaccinated. PHYSICAL EXAMINATION: VITAL SIGNS: Reviewed. T-max 99.9, blood pressure stable, pulse ox 95% on high-flow oxygen. LUNGS: Visual exam done due to COVID-19. No paradoxical breathing. EXTREMITIES: No leg edema. No skin rash. LABORATORY DATA: Reviewed. White cell count 8.7, hemoglobin 12.8, platelets are 346. BUN 14, creatinine 0.7. IMPRESSION: 1. Acute hypoxic respiratory failure, secondary to COVID-19 viral pneumonia/acute respiratory distress syndrome/acute lung injury. 2. Abnormal chest x-ray with bilateral interstitial infiltrates, consistent with COVID-19 viral pneumonia. RECOMMENDATIONS: 1. Continue present 100% FiO2 via nonrebreather mask and in addition 15 liters nasal cannula, high flow. 2. Continue and finish the course of steroids. 3. Continue remdesivir per protocol. 4. Lovenox for DVT prophylaxis. 5. Pulmonary status is guarded. We will watch him closely. If hypoxia worsens, we will try Vapotherm if available. cct 30 min BABAK/TOBY DR: Maurisio TID: [id number] MTDD
[2021-07-10 15:30] VITALS: BP 130/83
[2021-07-10 19:00] VITALS: BP 141/78
[2021-07-10] MEDS: ENOXAPARIN 40 MG/0.4 ML SYRINGE. SQ SCH (21:46)
[2021-07-10] MEDS: REMDESIVIR 100mg in NORMAL SALINE 250ML X 4 DAYS IV SCH (21:46)
[2021-07-10 23:02] VITALS: BP 143/94
[2021-07-11] VITALS (7 sets, daily range): BP systolic 131–152; BP diastolic 73–92
[2021-07-11] MEDS: IV NORMAL SALINE 1000ML BAG 1,000 ML IV SCH ×2 (03:43→16:29)
[2021-07-11] MEDS: methylPREDNISolone SOD SUCC PF 125 MG/2 ML VIAL. IV SCH ×3 (06:00→19:59)
[2021-07-11 06:25] LABS: CALCIUM 8.3 mg/dL (8.5-10.1); CREATININE 0.7 mg/dL (0.7-1.3); GFR 132.4; MAGNESIUM 2.5 mg/dL (1.8-2.4)
[2021-07-11 06:38] LABS: BASO % 0 % (0-3); EOS % 0 % (0-3); HEMATOCRIT 36.4 % (39.0-53.0); HEMOGLOBIN 12.9 g/dL (13.0-17.5); LYMPH % 12 % (24-48); MEAN CORPUSCULAR HEMOGLOBIN 31 pg (25-35); MEAN CORPUSCULAR HGB CONC 35 g/dL (31-37); MEAN CORPUSCULAR VOLUME 88 fL (79-100); MONO # 0.7 x10^3/uL (0.0-1.1); MONO % 8 % (0-9); NEUT # 6.4 x10^3/uL (1.8-7.7); NEUT % 80 % (31-73); PLATELET COUNT 374 x10^3/uL (140-400); RED BLOOD COUNT 4.13 x10^6/uL (4.30-5.70); RED CELL DISTRIBUTION WIDTH 12.8 % (11.5-14.5)
--- NOTE | 2021-07-11 08:26 | PDOC ---
PULMONARY PROGRESS NOTES DATE: 07/11/21 TIME: 08:24 Subjective Pt is weak, lethargic on 100%NRM/ 15 LITRES NC Vitals Vital Signs Date Time Temp Pulse Resp B/P (MAP) Pulse Ox O2 Delivery O2 Flow Rate FiO2 07/11/21 03:09 98.3 77 20 142/82 (102) 94 NonRebreather Mask 98.3 07/10/21 20:20 15.0 Comments visual exam done, lethargic no paradoxical breathing on max O2 Labs Laboratory Tests Test 07/10/21 06:10 07/11/21 05:40 White Blood Count 8.7 x10^3/uL (4.0-11.0) 8.0 x10^3/uL (4.0-11.0) Red Blood Count 4.11 x10^6/uL (4.30-5.70) 4.13 x10^6/uL (4.30-5.70) Hemoglobin 12.8 g/dL (13.0-17.5) 12.9 g/dL (13.0-17.5) Hematocrit 36.5 % (39.0-53.0) 36.4 % (39.0-53.0) Mean Corpuscular Volume 89 fL (79-100) 88 fL (79-100) Mean Corpuscular Hemoglobin 31 pg (25-35) 31 pg (25-35) Mean Corpuscular Hemoglobin Concent 35 g/dL (31-37) 35 g/dL (31-37) Red Cell Distribution Width 13.1 % (11.5-14.5) 12.8 % (11.5-14.5) Platelet Count 346 x10^3/uL (140-400) 374 x10^3/uL (140-400) Neutrophils (%) (Auto) 77 % (31-73) 80 % (31-73) Lymphocytes (%) (Auto) 16 % (24-48) 12 % (24-48) Monocytes (%) (Auto) 7 % (0-9) 8 % (0-9) Eosinophils (%) (Auto) 0 % (0-3) 0 % (0-3) Basophils (%) (Auto) 0 % (0-3) 0 % (0-3) Neutrophils # (Auto) 6.7 x10^3/uL (1.8-7.7) 6.4 x10^3/uL (1.8-7.7) Lymphocytes # (Auto) 1.4 x10^3/uL (1.0-4.8) 1.0 x10^3/uL (1.0-4.8) Monocytes # (Auto) 0.6 x10^3/uL (0.0-1.1) 0.7 x10^3/uL (0.0-1.1) Eosinophils # (Auto) 0.0 x10^3/uL (0.0-0.7) 0.0 x10^3/uL (0.0-0.7) Basophils # (Auto) 0.0 x10^3/uL (0.0-0.2) 0.0 x10^3/uL (0.0-0.2) Sodium Level 137 mmol/L (136-145) 136 mmol/L (136-145) Potassium Level 4.0 mmol/L (3.5-5.1) 4.0 mmol/L (3.5-5.1) Chloride Level 103 mmol/L (98-107) 103 mmol/L (98-107) Carbon Dioxide Level 27 mmol/L (21-32) 27 mmol/L (21-32) Anion Gap 7 (6-14) 6 (6-14) Blood Urea Nitrogen 14 mg/dL (8-26) 16 mg/dL (8-26) Creatinine 0.7 mg/dL (0.7-1.3) 0.7 mg/dL (0.7-1.3) Estimated GFR (Cockcroft-Gault) 132.4 132.4 Glucose Level 150 mg/dL (70-99) 159 mg/dL (70-99) Calcium Level 8.2 mg/dL (8.5-10.1) 8.3 mg/dL (8.5-10.1) Magnesium Level 2.5 mg/dL (1.8-2.4) 2.5 mg/dL (1.8-2.4) Laboratory Tests Test 07/11/21 05:40 White Blood Count 8.0 x10^3/uL (4.0-11.0) Red Blood Count 4.13 x10^6/uL (4.30-5.70) Hemoglobin 12.9 g/dL (13.0-17.5) Hematocrit 36.4 % (39.0-53.0) Mean Corpuscular Volume 88 fL (79-100) Mean Corpuscular Hemoglobin 31 pg (25-35) Mean Corpuscular Hemoglobin Concent 35 g/dL (31-37) Red Cell Distribution Width 12.8 % (11.5-14.5) Platelet Count 374 x10^3/uL (140-400) Neutrophils (%) (Auto) 80 % (31-73) Lymphocytes (%) (Auto) 12 % (24-48) Monocytes (%) (Auto) 8 % (0-9) Eosinophils (%) (Auto) 0 % (0-3) Basophils (%) (Auto) 0 % (0-3) Neutrophils # (Auto) 6.4 x10^3/uL (1.8-7.7) Lymphocytes # (Auto) 1.0 x10^3/uL (1.0-4.8) Monocytes # (Auto) 0.7 x10^3/uL (0.0-1.1) Eosinophils # (Auto) 0.0 x10^3/uL (0.0-0.7) Basophils # (Auto) 0.0 x10^3/uL (0.0-0.2) Sodium Level 136 mmol/L (136-145) Potassium Level 4.0 mmol/L (3.5-5.1) Chloride Level 103 mmol/L (98-107) Carbon Dioxide Level 27 mmol/L (21-32) Anion Gap 6 (6-14) Blood Urea Nitrogen 16 mg/dL (8-26) Creatinine 0.7 mg/dL (0.7-1.3) Estimated GFR (Cockcroft-Gault) 132.4 Glucose Level 159 mg/dL (70-99) Calcium Level 8.3 mg/dL (8.5-10.1) Magnesium Level 2.5 mg/dL (1.8-2.4) Impression . 1. Acute hypoxic respiratory failure, secondary to COVID-19 viral pneumonia/acute respiratory distress syndrome/acute lung injury. 2. Abnormal chest x-ray with bilateral interstitial infiltrates, consistent with COVID-19 viral pneumonia. Plan . RECOMMENDATIONS: 1. Continue present 100% FiO2 via nonrebreather mask and in addition 15 liters nasal cannula, high flow. d/w RN, needs to transfer to ICU or 6th floor for dc jeff, high risk for intubation 2. Continue and finish the course of steroids. 3. Continue remdesivir per protocol. 4. Lovenox for DVT prophylaxis. 5. Pulmonary status is guarded. We will watch him closely. If hypoxia worsens, will need intubation KIRK CASTRO MD Jul 11, 2021 08:26
[2021-07-11] MEDS: THIAMINE 100 MG TABLET. PO SCH (08:49)
[2021-07-11] MEDS: PANTOPRAZOLE 40 MG TABLET.DR. PO SCH (08:49)
[2021-07-11] MEDS: ZINC SULFATE 220 MG CAPSULE. PO SCH (08:49)
[2021-07-11] MEDS: ASCORBIC ACID 1,000 MG TABLET PO SCH ×3 (08:50→20:00)
[2021-07-11 10:28] LABS: INFLUENZA A PATIENT NEGATIVE (NEGATIVE); INFLUENZA B PATIENT NEGATIVE (NEGATIVE)
--- NOTE | 2021-07-11 12:38 | PDOC ---
[facility] PROGRESS NOTE Date of Service DOS: DATE: 07/11/21 TIME: 12:36 Chief Complaint Chief Complaint Acute hypoxic respiratory failure Covid pneumonia Acute electrolyte derangementhyponatremia, hypochloremia due to volume depletion Mild transaminitis Lymphopenia Moderate protein malnutrition Admit to medicine for further management Pulmonology consult Continue IV thiamine and vitamin C IV Solu-Medrol every 8 hours Pending ferritin, LDH, CRP, D-dimer labs Titrate O2 supplementation to maintain O2 saturation greater than 92% Lovenox for DVT prophylaxis Protonix GI prophylaxis ADA diet Full code Discussed with RN and SW Disposition inpatient management as above Surrogate decision maker is the sister History of Present Illness History of Present Illness Patient is a 31-year-old Tajik-speaking male with no significant past medical history who presents to the ED with shortness of breath a few days ago but definitely got worse today.. He was actually tested for Covid 9 days ago by sending service. It came back positive a few days ago. When EMS came to pick him up he was found to be 84% on room air at home. Patient currently denies any fevers, abdominal pain, chest pain, dysuria or bloody stools or diarrhea. Patient is not vaccinated for Covid. 07/09/21 Is able to bedside. She is on a significant amount of nasal cannula however no signs of worsening respiratory status. No complaints. Continuing Covid protocol. Will wean oxygen as tolerated. 07/10/2021 No acute events overnight. Patient saturating 95% and increasing O2 requirements to 15 L nonrebreather. T-max of 99.9 overnight. We will continue with current Covid protocol treatment. Patient's chart, labs, images were reviewed and discussed with RN In addition to my E/M visit, advance care planning done with A total time of 20 minutes was spent from 1030 to 1050 over the phone in discussion with the sister regarding the patient's goals of care, CODE STATUS. 07/11/2021 No acute events overnight. Patient saturating 94% on 15 L nonrebreather. Influenza tested was negative for a and B. Patient's chart, labs, images were reviewed and discussed with RN Vitals/I&O Vitals/I&O: Vital Signs Date Time Temp Pulse Resp B/P (MAP) Pulse Ox O2 Delivery O2 Flow Rate FiO2 07/11/21 10:42 98.1 76 20 134/81 (98) 95 NonRebreather Mask 98.1 07/11/21 08:00 15.0 I & O 07/10/21 07/10/21 07/11/21 15:00 23:00 07:00 Intake Total 200 ml 1330 ml 1000 ml Output Total 1350 ml 1300 ml Balance -1150 ml 1330 ml -300 ml Physical Exam General: Alert, Oriented X3, Cooperative Heart: Regular rate, Normal S1, Normal S2 Abdomen: Normal bowel sounds, Soft, No tenderness Extremities: No clubbing, No edema, Normal pulses Skin: No rashes, No significant lesion Labs Labs: Laboratory Tests Test 07/11/21 05:40 07/11/21 09:06 White Blood Count 8.0 x10^3/uL (4.0-11.0) Red Blood Count 4.13 x10^6/uL (4.30-5.70) Hemoglobin 12.9 g/dL (13.0-17.5) Hematocrit 36.4 % (39.0-53.0) Mean Corpuscular Volume 88 fL (79-100) Mean Corpuscular Hemoglobin 31 pg (25-35) Mean Corpuscular Hemoglobin Concent 35 g/dL (31-37) Red Cell Distribution Width 12.8 % (11.5-14.5) Platelet Count 374 x10^3/uL (140-400) Neutrophils (%) (Auto) 80 % (31-73) Lymphocytes (%) (Auto) 12 % (24-48) Monocytes (%) (Auto) 8 % (0-9) Eosinophils (%) (Auto) 0 % (0-3) Basophils (%) (Auto) 0 % (0-3) Neutrophils # (Auto) 6.4 x10^3/uL (1.8-7.7) Lymphocytes # (Auto) 1.0 x10^3/uL (1.0-4.8) Monocytes # (Auto) 0.7 x10^3/uL (0.0-1.1) Eosinophils # (Auto) 0.0 x10^3/uL (0.0-0.7) Basophils # (Auto) 0.0 x10^3/uL (0.0-0.2) Sodium Level 136 mmol/L (136-145) Potassium Level 4.0 mmol/L (3.5-5.1) Chloride Level 103 mmol/L (98-107) Carbon Dioxide Level 27 mmol/L (21-32) Anion Gap 6 (6-14) Blood Urea Nitrogen 16 mg/dL (8-26) Creatinine 0.7 mg/dL (0.7-1.3) Estimated GFR (Cockcroft-Gault) 132.4 Glucose Level 159 mg/dL (70-99) Calcium Level 8.3 mg/dL (8.5-10.1) Magnesium Level 2.5 mg/dL (1.8-2.4) Influenza Type A Antigen Negative (NEGATIVE) Influenza Type B Antigen Negative (NEGATIVE) Assessment and Plan Assessmemt and Plan Problems Medical Problems: (1) Bilateral pneumonia Status: Acute (2) Fever Status: Acute (3) Hypoxia Status: Acute (4) Lab test positive for detection of COVID-19 virus Status: Acute Comment Review of Relevant I have reviewed the following items irving (where applicable) has been applied. Justifications for Admission Other Justification Hypoxic respiratory failure VIKRAM MOLINA MD Jul 11, 2021 12:38
--- NOTE | 2021-07-11 15:35 | NUR ---
REPORT CALLED TO GENESIS (RN ON [facility]), QUESTIONS AND CONCERNS ANSWERED, INFORMED HIM THAT I WOULD TRANSPORT THE PATIENT BY BED TO ROOM [id number].
--- NOTE | 2021-07-11 15:50 | NUR ---
PATIENT TRANSFERRED TO [id number] PER BED AND ACCOMPANIED BY THIS [employer] AND [employer], FOR TRANSPORT PATIENT REMAINS ON 15 LITERS NONBREATHER AND 15 LITERS HIGH FLOW NASAL CANULA, RESPIRATORY THERAPY WAITING IN THE ROOM WITH VAPOTHERM MACHINE AT THE BEDSIDE, WHEN PATIENT IS CONNECTED HIS O2 SATS READS 97% AND HEART RATE 77, EMOTIONAL SUPPORT GIVEN.
[2021-07-11] MEDS: STERILE WATER for RESP 1,000 ML BAG. INH PRN (16:38)
[2021-07-11] MEDS: REMDESIVIR 100mg in NORMAL SALINE 250ML X 4 DAYS IV SCH (19:59)
[2021-07-11] MEDS: ENOXAPARIN 40 MG/0.4 ML SYRINGE. SQ SCH (20:00)
[2021-07-12] MEDS: IV NORMAL SALINE 1000ML BAG 1,000 ML IV SCH ×3 (01:00→20:14)
[2021-07-12 02:36] VITALS: BP 137/86
[2021-07-12] MEDS: methylPREDNISolone SOD SUCC PF 125 MG/2 ML VIAL. IV SCH ×3 (05:30→20:13)
[2021-07-12 06:33] VITALS: BP 140/93
[2021-07-12] MEDS: ASCORBIC ACID 1,000 MG TABLET PO SCH ×3 (08:38→20:24)
[2021-07-12] MEDS: PANTOPRAZOLE 40 MG TABLET.DR. PO SCH (08:38)
[2021-07-12] MEDS: ZINC SULFATE 220 MG CAPSULE. PO SCH (08:38)
[2021-07-12] MEDS: THIAMINE 100 MG TABLET. PO SCH (08:39)
--- NOTE | 2021-07-12 09:50 | PDOC ---
PULMONARY PROGRESS NOTES DATE: 07/12/21 TIME: 09:48 Subjective Patient appears to be more rested. On Vapotherm 100% FiO2. Vitals Vital Signs Date Time Temp Pulse Resp B/P (MAP) Pulse Ox O2 Delivery O2 Flow Rate FiO2 07/12/21 06:33 97.7 62 18 140/93 (109) 96 NonRebreather Mask 97.7 07/12/21 05:00 40.0 Comments visual exam done, lethargic no paradoxical breathing on max O2 Labs Laboratory Tests Test 07/11/21 05:40 07/11/21 09:06 White Blood Count 8.0 x10^3/uL (4.0-11.0) Red Blood Count 4.13 x10^6/uL (4.30-5.70) Hemoglobin 12.9 g/dL (13.0-17.5) Hematocrit 36.4 % (39.0-53.0) Mean Corpuscular Volume 88 fL (79-100) Mean Corpuscular Hemoglobin 31 pg (25-35) Mean Corpuscular Hemoglobin Concent 35 g/dL (31-37) Red Cell Distribution Width 12.8 % (11.5-14.5) Platelet Count 374 x10^3/uL (140-400) Neutrophils (%) (Auto) 80 % (31-73) Lymphocytes (%) (Auto) 12 % (24-48) Monocytes (%) (Auto) 8 % (0-9) Eosinophils (%) (Auto) 0 % (0-3) Basophils (%) (Auto) 0 % (0-3) Neutrophils # (Auto) 6.4 x10^3/uL (1.8-7.7) Lymphocytes # (Auto) 1.0 x10^3/uL (1.0-4.8) Monocytes # (Auto) 0.7 x10^3/uL (0.0-1.1) Eosinophils # (Auto) 0.0 x10^3/uL (0.0-0.7) Basophils # (Auto) 0.0 x10^3/uL (0.0-0.2) Sodium Level 136 mmol/L (136-145) Potassium Level 4.0 mmol/L (3.5-5.1) Chloride Level 103 mmol/L (98-107) Carbon Dioxide Level 27 mmol/L (21-32) Anion Gap 6 (6-14) Blood Urea Nitrogen 16 mg/dL (8-26) Creatinine 0.7 mg/dL (0.7-1.3) Estimated GFR (Cockcroft-Gault) 132.4 Glucose Level 159 mg/dL (70-99) Calcium Level 8.3 mg/dL (8.5-10.1) Magnesium Level 2.5 mg/dL (1.8-2.4) Influenza Type A Antigen Negative (NEGATIVE) Influenza Type B Antigen Negative (NEGATIVE) Impression . 1. Acute hypoxic respiratory failure, secondary to COVID-19 viral pneumonia/acute respiratory distress syndrome/acute lung injury. 2. Abnormal chest x-ray with bilateral interstitial infiltrates, consistent with COVID-19 viral pneumonia. Plan . 1. Continue present Vapotherm. Wean FiO2 and flow rate as tolerated. high risk for intubation. Closely watch respiratory status. 2. Continue and finish the course of steroids. 3. Continue remdesivir per protocol. 4. Lovenox for DVT prophylaxis. 5. Pulmonary status is guarded. We will watch him closely. KIRK CASTRO MD Jul 12, 2021 09:50
[2021-07-12] MEDS: STERILE WATER for RESP 1,000 ML BAG. INH PRN ×2 (10:32→14:55)
[2021-07-12 11:24] VITALS: BP 150/69
--- NOTE | 2021-07-12 12:55 | PDOC ---
[facility] PROGRESS NOTE Date of Service DOS: DATE: 07/12/21 TIME: 12:47 Chief Complaint Chief Complaint Acute hypoxic respiratory failure Covid pneumonia Acute electrolyte derangementhyponatremia, hypochloremia due to volume depletion Mild transaminitis Lymphopenia Moderate protein malnutrition History of Present Illness History of Present Illness Patient is a 31-year-old Latvian-speaking male with no significant past medical history who presents to the ED with shortness of breath a few days ago but definitely got worse today.. He was actually tested for Covid 9 days ago by sending service. It came back positive a few days ago. When EMS came to pick him up he was found to be 84% on room air at home. Patient currently denies any fevers, abdominal pain, chest pain, dysuria or bloody stools or diarrhea. Patient is not vaccinated for Covid. 07/09/21 Is able to bedside. She is on a significant amount of nasal cannula however no signs of worsening respiratory status. No complaints. Continuing Covid protocol. Will wean oxygen as tolerated. 07/10/2021 No acute events overnight. Patient saturating 95% and increasing O2 requirements to 15 L nonrebreather. T-max of 99.9 overnight. We will continue with current Covid protocol treatment. Patient's chart, labs, images were reviewed and discussed with RN In addition to my E/M visit, advance care planning done with A total time of 20 minutes was spent from 1030 to 1050 over the phone in discussion with the sister regarding the patient's goals of care, CODE STATUS. 07/11/2021 No acute events overnight. Patient saturating 94% on 15 L nonrebreather. Influenza tested was negative for a and B. Patient's chart, labs, images were reviewed and discussed with RN 07/12/2021 Patient was awake and alert with NAD. Seen and examined in bed. D/W RN, Chart Review Patient saturating 93% on vapotherm 40L of 90% O2. Discussed with patient that we will continue treatment plan and monitor for improvements. Vitals/I&O Vitals/I&O: Vital Signs Date Time Temp Pulse Resp B/P (MAP) Pulse Ox O2 Delivery O2 Flow Rate FiO2 07/12/21 11:24 96.8 61 18 150/69 (96) 100 Room Air 96.8 07/12/21 08:00 40.0 I & O 07/11/21 07/11/21 07/12/21 15:00 23:00 07:00 Intake Total 400 ml 480 ml 580 ml Output Total 750 ml 800 ml 1300 ml Balance -350 ml -320 ml -720 ml Physical Exam General: Alert, Oriented X3, Cooperative Heart: Regular rate, Normal S1, Normal S2 Abdomen: Normal bowel sounds, Soft, No tenderness Extremities: No clubbing, No edema, Normal pulses Skin: No rashes, No significant lesion Review of Systems Review of Systems: Denies fevers or chills Denies BOOKER or vision changes Assessment and Plan Assessmemt and Plan Acute hypoxic respiratory failure Covid pneumonia Acute electrolyte derangementhyponatremia, hypochloremia due to volume depletion Mild transaminitis Lymphopenia Moderate protein malnutrition Plan Titrate O2 supplementation to maintain O2 saturation greater than 92% Continue COVID protocol -Finish Remidisivir (stop date is 07/12) -Continue Vitamins -Continue Steroid -Continue Lovenox for DVT prophylaxis Pulmonology consult Appreciate subspecialty input Pending ferritin, LDH, CRP, D-dimer labs Protonix GI prophylaxis Home meds Full code Surrogate decision maker is the sister Comment Review of Relevant I have reviewed the following items irving (where applicable) has been applied. Medications: Current Medications Medications (Trade) Dose Ordered Sig/Maco Route PRN Reason Start Time Stop Time Status Last Admin Dose Admin Sterile Water (WATER for RESP) 1,000 ml CONT PRN INH VIA VAPOTHERM DEVICE 07/11/21 15:45 07/12/21 10:32 Justifications for Admission Other Justification Hypoxic respiratory failure DENISE NUNEZ III DO Jul 12, 2021 12:55
[2021-07-12 15:00] VITALS: BP 121/75
[2021-07-12 19:33] VITALS: BP 144/93
[2021-07-12] MEDS: ENOXAPARIN 40 MG/0.4 ML SYRINGE. SQ SCH (20:14)
[2021-07-12] MEDS: REMDESIVIR 100mg in NORMAL SALINE 250ML X 4 DAYS IV SCH (20:14)
[2021-07-12 22:34] VITALS: BP 140/86
[2021-07-13 02:44] VITALS: BP 141/85
[2021-07-13] MEDS: methylPREDNISolone SOD SUCC PF 125 MG/2 ML VIAL. IV SCH ×3 (05:06→19:17)
[2021-07-13 07:00] VITALS: BP 135/90
[2021-07-13] MEDS: PANTOPRAZOLE 40 MG TABLET.DR. PO SCH (07:03)
[2021-07-13] MEDS: ZINC SULFATE 220 MG CAPSULE. PO SCH (07:03)
[2021-07-13] MEDS: ASCORBIC ACID 1,000 MG TABLET PO SCH ×3 (07:03→19:16)
[2021-07-13] MEDS: THIAMINE 100 MG TABLET. PO SCH (07:03)
[2021-07-13] MEDS: IV NORMAL SALINE 1000ML BAG 1,000 ML IV SCH ×2 (08:22→16:33)
--- NOTE | 2021-07-13 09:08 | PDOC ---
PULMONARY PROGRESS NOTES DATE: 07/13/21 TIME: 09:05 Subjective Patient appears to be more rested. On Vapotherm 70% FiO2. Vitals Vital Signs Date Time Temp Pulse Resp B/P (MAP) Pulse Ox O2 Delivery O2 Flow Rate FiO2 07/13/21 08:24 98 High Flow Nasal Cannula 40.0 07/13/21 07:00 97.6 62 18 135/90 (105) 97.6 Comments visual exam done, lethargic no paradoxical breathing on max O2 Labs Laboratory Tests Test 07/11/21 09:06 Influenza Type A Antigen Negative (NEGATIVE) Influenza Type B Antigen Negative (NEGATIVE) Impression . 1. Acute hypoxic respiratory failure, secondary to COVID-19 viral pneumonia/acute respiratory distress syndrome/acute lung injury. 2. Abnormal chest x-ray with bilateral interstitial infiltrates, consistent with COVID-19 viral pneumonia. Plan . 1. Continue present Vapotherm. Wean FiO2 and flow rate as tolerated. slowly improving. Closely watch respiratory status. 2. Continue and finish the course of steroids. 3. Continue remdesivir per protocol. 4. Lovenox for DVT prophylaxis. 5. Pulmonary status is guarded. We will watch him closely. KIRK CASTOR MD Jul 13, 2021 09:08
[2021-07-13] MEDS: STERILE WATER for RESP 1,000 ML BAG. INH PRN (09:20)
--- NOTE | 2021-07-13 10:29 | PDOC ---
PROGRESS NOTES Date of Service: DATE: 07/13/21 TIME: 10:28 Chief Complaint Chief Complaint impression Acute hypoxic respiratory failure Covid pneumonia Acute electrolyte derangementhyponatremia, hypochloremia due to volume depletion Mild transaminitis Lymphopenia Moderate protein malnutrition History of Present Illness History of Present Illness Patient is a 31-year-old American-speaking male with no significant past medical history who presents to the ED with shortness of breath a few days ago but definitely got worse today.. He was actually tested for Covid 9 days ago by sending service. It came back positive a few days ago. When EMS came to pick him up he was found to be 84% on room air at home. Patient currently denies any fevers, abdominal pain, chest pain, dysuria or bloody stools or diarrhea. Patient is not vaccinated for Covid. 07/09/21 Is able to bedside. She is on a significant amount of nasal cannula however no signs of worsening respiratory status. No complaints. Continuing Covid protocol. Will wean oxygen as tolerated. 07/10/2021 No acute events overnight. Patient saturating 95% and increasing O2 requirements to 15 L nonrebreather. T-max of 99.9 overnight. We will continue with current Covid protocol treatment. Patient's chart, labs, images were reviewed and discussed with RN In addition to my E/M visit, advance care planning done with A total time of 20 minutes was spent from 1030 to 1050 over the phone in discussion with the sister regarding the patient's goals of care, CODE STATUS. 07/11/2021 No acute events overnight. Patient saturating 94% on 15 L nonrebreather. Influenza tested was negative for a and B. Patient's chart, labs, images were reviewed and discussed with RN 07/13/2021 Patient was awake and alert with NAD. Seen and examined in bed. D/W RN, Chart Review Patient saturating 99% on vapotherm 40L of 90% O2. continue treatment plan and monitor for improvement. inish the course of steroids. Continue remdesivir per protocol. Lovenox for DVT prophylaxis. Vitals Vitals Vital Signs Date Time Temp Pulse Resp B/P (MAP) Pulse Ox O2 Delivery O2 Flow Rate FiO2 07/13/21 10:16 99 High Flow Nasal Cannula 40.0 07/13/21 07:00 97.6 62 18 135/90 (105) 97.6 Physical Exam General: Alert, Oriented X3, Cooperative Heart: Regular rate, Normal S1, Normal S2 Abdomen: Normal bowel sounds, Soft, No tenderness Extremities: No clubbing, No edema, Normal pulses Skin: No rashes, No significant lesion Assessment and Plan Assessmemt and Plan Problems Medical Problems: (1) Bilateral pneumonia Status: Acute (2) Fever Status: Acute (3) Hypoxia Status: Acute (4) Lab test positive for detection of COVID-19 virus Status: Acute Comment Review of Relevant I have reviewed the following items irving (where applicable) has been applied. Labs Microbiology 07/08/21 Blood Culture - Preliminary, Resulted NO GROWTH AFTER 4 DAYS Medications Current Medications Sodium Chloride 1,000 ml @ 1,860 mls/hr Q33M IV Last administered on 07/08/21at 15:18; Start 07/08/21 at 14:00; Stop 07/08/21 at 15:00; Status DC Piperacillin Sod/ Tazobactam Sod 4.5 gm/Sodium Chloride 100 ml @ 200 mls/hr 1X ONCE IV Last administered on 07/08/21at 14:27; Start 07/08/21 at 14:00; Stop 07/08/21 at 14:29; Status DC Dexamethasone Sodium Phosphate (Decadron) 10 mg 1X ONCE IV Last administered on 07/08/21at 14:26; Start 07/08/21 at 14:00; Stop 07/08/21 at 14:01; Status DC Acetaminophen (Tylenol) 1,000 mg 1X ONCE PO Last administered on 07/08/21at 14:25; Start 07/08/21 at 14:00; Stop 07/08/21 at 14:01; Status DC Ascorbic Acid (Vitamin C) 3,000 mg TID PO Last administered on 07/13/21at 07:03; Start 07/08/21 at 21:00 Methylprednisolone Sodium Succinate (SOLU-Medrol 125MG VIAL) 125 mg Q8HRS IV Last administered on 07/13/21at 05:06; Start 07/08/21 at 22:00 Thiamine Mononitrate (Vitamin B-1) 300 mg DAILY PO Last administered on 07/13/21at 07:03; Start 07/08/21 at 16:00 Zinc Sulfate (Orazinc) 220 mg DAILY PO Last administered on 07/13/21at 07:03; Start 07/08/21 at 16:00 Sennosides (Senna) 17.2 mg PRN BID PRN PO CONSTIPATION; Start 07/08/21 at 15:45 Docusate Sodium (Colace) 100 mg PRN DAILY PRN PO HARD STOOLS; Start 07/08/21 at 15:45 Ondansetron HCl (Zofran) 4 mg PRN Q6HRS PRN IVP NAUSEA/VOMITING, 1st CHOICE; Start 07/08/21 at 15:45 Dextrose (Dextrose 50%-Water Syringe) 12.5 gm PRN Q15MIN PRN IV SEE COMMENTS; Start 07/08/21 at 15:45 Sodium Chloride 1,000 ml @ 100 mls/hr Q10H IV Last administered on 07/13/21at 08:22; Start 07/08/21 at 17:00 Acetaminophen (Tylenol) 650 mg PRN Q4HRS PRN PO TEMP OVER 100.4F OR MILD PAIN Last administered on 07/09/21at 00:04; Start 07/08/21 at 15:45 Enoxaparin Sodium (Lovenox 40mg Syringe) 40 mg Q24H SQ Last administered on 07/12/21at 20:14; Start 07/08/21 at 21:00 Pantoprazole Sodium (Protonix) 40 mg DAILYAC PO Last administered on 07/13/21at 07:03; Start 07/08/21 at 16:30 Prochlorperazine Edisylate (Compazine) 10 mg PRN Q6HRS PRN IV NAUSEA/VOMITING, 2nd CHOICE; Start 07/08/21 at 15:45 Ondansetron HCl (Zofran) 4 mg PRN Q8HRS PRN IVP NAUSEA/VOMITING; Start 07/08/21 at 16:30; Stop 07/09/21 at 14:48; Status DC Morphine Sulfate (Morphine Sulfate) 2 mg PRN Q2HR PRN IVP PAIN; Start 07/08/21 at 16:30; Stop 07/09/21 at 16:29; Status DC Acetaminophen (Tylenol) 650 mg PRN Q4HRS PRN PO FEVER > 100.3'F; Start 07/08/21 at 16:30; Stop 07/09/21 at 14:48; Status DC Remdesivir 200 mg/ Sodium Chloride 210 ml @ 210 mls/hr 1X ONCE IV Last administered on 07/09/21at 00:04; Start 07/08/21 at 22:30; Stop 07/08/21 at 23:29; Status DC Remdesivir 100 mg/ Sodium Chloride 230 ml @ 460 mls/hr Q24H IV Last administer ed on 07/12/21at 20:14; Start 07/09/21 at 21:00; Stop 07/12/21 at 21:29; Status DC Lorazepam (Ativan) 0.25 mg Q6HRS PRN PO ANXIETY / AGITATION Last administered on 07/09/21at 12:59; Start 07/09/21 at 13:00 Sterile Water (WATER for RESP) 1,000 ml CONT PRN INH VIA VAPOTHERM DEVICE Last administered on 07/13/21at 09:20; Start 07/11/21 at 15:45 Vitals/I & O Vital Sign - Last 24 Hours 07/12/21 07/12/21 07/12/21 07/12/21 11:24 11:50 15:00 16:22 Temp 96.8 98.0 96.8 98.0 Pulse 61 74 Resp 18 20 B/P (MAP) 150/69 (96) 121/75 (90) Pulse Ox 100 96 98 99 O2 Delivery Room Air VAPOTHERM Room Air VAPOTHERM O2 Flow Rate 40.0 40.0 07/12/21 07/12/21 07/12/21 07/12/21 19:33 19:41 21:02 22:34 Temp 97.9 98.2 97.9 98.2 Pulse 63 62 Resp 18 18 B/P (MAP) 144/93 (110) 140/86 (104) Pulse Ox 100 97 99 O2 Delivery Room Air Vapotherm VAPOTHERM Room Air O2 Flow Rate 40.0 40.0 07/13/21 07/13/21 07/13/21 07/13/21 00:19 02:44 02:50 05:15 Temp 98.0 98.0 Pulse 61 Resp 18 B/P (MAP) 141/85 (103) Pulse Ox 98 100 96 97 O2 Delivery VAPOTHERM Room Air High Flow Nasal Cannula High Flow Nasal Cannula O2 Flow Rate 40.0 40.0 40.0 07/13/21 07/13/21 07/13/21 07/13/21 07:00 08:00 08:24 10:16 Temp 97.6 97.6 Pulse 62 Resp 18 B/P (MAP) 135/90 (105) Pulse Ox 96 98 99 O2 Delivery Room Air Vapotherm High Flow Nasal Cannula High Flow Nasal Cannula O2 Flow Rate 40.0 40.0 40.0 Intake and Output 07/12/21 07/12/21 07/13/21 15:00 23:00 07:00 Intake Total 180 ml 480 ml 600 ml Output Total 1000 ml 1100 ml 1125 ml Balance -820 ml -620 ml -525 ml Justicifation of Admission Dx: Justifications for Admission: Justification of Admission Dx: Yes Sepsis: Hypoxemia DAKOTA BAY MD Jul 13, 2021 10:29
[2021-07-13 11:00] VITALS: BP 126/76
--- NOTE | 2021-07-13 13:50 | NUR ---
SS following for discharge planning. SS reviewed pt chart and discussed with pt RN. Pt is from home with spouse and is currently on Vapotherm. COVID19 positive. Pt on IV Solu Medrol. Self pay. Med Assist following. SS will continue to follow for discharge planning.
[2021-07-13 15:00] VITALS: BP 135/88
[2021-07-13 19:15] VITALS: BP 132/79
[2021-07-13] MEDS: ENOXAPARIN 40 MG/0.4 ML SYRINGE. SQ SCH (19:16)
[2021-07-13 23:01] VITALS: BP 124/78
[2021-07-14] MEDS: IV NORMAL SALINE 1000ML BAG 1,000 ML IV SCH ×2 (03:00→16:58)
[2021-07-14 03:14] VITALS: BP 140/95
[2021-07-14] MEDS: methylPREDNISolone SOD SUCC PF 125 MG/2 ML VIAL. IV SCH (05:38)
[2021-07-14 06:30] VITALS: BP 134/86
--- NOTE | 2021-07-14 08:46 | PDOC ---
PULMONARY PROGRESS NOTES DATE: 07/14/21 TIME: 08:43 Subjective Patient is feeling much better today on vapotherm 30liters at 30% afebrile no overnight concerns Vitals Vital Signs Date Time Temp Pulse Resp B/P (MAP) Pulse Ox O2 Delivery O2 Flow Rate FiO2 07/14/21 08:20 93 Nasal Cannula 5.0 07/14/21 06:30 97.5 68 16 134/86 (102) 97.5 Comments visual exam done, RRR no paradoxical breathing vapotherm Labs Laboratory Tests Test 07/12/21 17:30 SARS-CoV-2 RNA (JONATHON) Negative (Negative) Impression . 1. Acute hypoxic respiratory failure, secondary to COVID-19 viral pneumonia/acute respiratory distress syndrome/acute lung injury.--improving 2. Abnormal chest x-ray with bilateral interstitial infiltrates, consistent with COVID-19 viral pneumonia. Plan . Continue supplemental oxygen to keep sats above 92%, currently on vapotherm 30liter at 30%, transition to [place] oxygen 6 min walk before DC Change to po steroids with taper S/P Remdesivir DVT/GI PPX:lovenox D/W RN and RT KIRK CASTRO MD Jul 14, 2021 08:46
[2021-07-14] MEDS: THIAMINE 100 MG TABLET. PO SCH (09:54)
[2021-07-14] MEDS: PANTOPRAZOLE 40 MG TABLET.DR. PO SCH (09:55)
[2021-07-14] MEDS: ASCORBIC ACID 1,000 MG TABLET PO SCH ×3 (09:55→21:02)
[2021-07-14] MEDS: predniSONE 20 MG TABLET PO SCH (09:55)
[2021-07-14] MEDS: ZINC SULFATE 220 MG CAPSULE. PO SCH (09:55)
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
--- NOTE | 2021-07-14 10:07 | PDOC ---
PROGRESS NOTES Date of Service: DATE: 07/14/21 TIME: 10:06 Chief Complaint Chief Complaint impression Acute hypoxic respiratory failure Covid pneumonia Acute electrolyte derangementhyponatremia, hypochloremia due to volume depletion Mild transaminitis Lymphopenia Moderate protein malnutrition History of Present Illness History of Present Illness Patient is a 31-year-old [place]uean-speaking male with no significant past medical history who presents to the ED with shortness of breath a few days ago but definitely got worse today.. He was actually tested for Covid 9 days ago by sending service. It came back positive a few days ago. When EMS came to pick him up he was found to be 84% on room air at home. Patient currently denies any fevers, abdominal pain, chest pain, dysuria or bloody stools or diarrhea. Patient is not vaccinated for Covid. 07/09/21 Is able to bedside. She is on a significant amount of nasal cannula however no signs of worsening respiratory status. No complaints. Continuing Covid protocol. Will wean oxygen as tolerated. 07/10/2021 No acute events overnight. Patient saturating 95% and increasing O2 requirements to 15 L nonrebreather. T-max of 99.9 overnight. We will continue with current Covid protocol treatment. Patient's chart, labs, images were reviewed and discussed with RN In addition to my E/M visit, advance care planning done with A total time of 20 minutes was spent from 1030 to 1050 over the phone in discussion with the sister regarding the patient's goals of care, CODE STATUS. 07/11/2021 No acute events overnight. Patient saturating 94% on 15 L nonrebreather. Influenza tested was negative for a and B. Patient's chart, labs, images were reviewed and discussed with RN 07/13/2021 Patient was awake and alert with NAD. Seen and examined in bed. D/W RN, Chart Review Patient saturating 94% on vapotherm 30L continue treatment plan and monitor for improvement. inish the course of steroids. Continue remdesivir per protocol. Lovenox for DVT prophylaxis. 07/14/2021 Patient was awake and alert with NAD. Seen and examined in bed. D/W RN, Chart Review Patient saturating 99% on vapotherm 40L of 90% O2. continue treatment plan and monitor for improvement. inish the course of steroids. Continue remdesivir per protocol. Lovenox for DVT prophylaxis. Vitals Vitals Vital Signs Date Time Temp Pulse Resp B/P (MAP) Pulse Ox O2 Delivery O2 Flow Rate FiO2 07/14/21 09:13 94 Nasal Cannula 4.5 07/14/21 06:30 97.5 68 16 134/86 (102) 97.5 Physical Exam General: Alert, Oriented X3, Cooperative Heart: Regular rate, Normal S1, Normal S2 Abdomen: Normal bowel sounds, Soft, No tenderness Extremities: No clubbing, No cyanosis, No edema, Normal pulses Skin: No rashes, No significant lesion Assessment and Plan Assessmemt and Plan Problems Medical Problems: (1) Bilateral pneumonia Status: Acute (2) Fever Status: Acute (3) Hypoxia Status: Acute (4) Lab test positive for detection of COVID-19 virus Status: Acute Comment Review of Relevant I have reviewed the following items irving (where applicable) has been applied. Labs Laboratory Tests Test 07/12/21 17:30 SARS-CoV-2 RNA (JONATHON) Negative (Negative) Microbiology 07/08/21 Blood Culture - Final, Complete NO GROWTH AFTER 5 DAYS Medications Current Medications Sodium Chloride 1,000 ml @ 1,860 mls/hr Q33M IV Last administered on 07/08/21at 15:18; Start 07/08/21 at 14:00; Stop 07/08/21 at 15:00; Status DC Piperacillin Sod/ Tazobactam Sod 4.5 gm/Sodium Chloride 100 ml @ 200 mls/hr 1X ONCE IV Last administered on 07/08/21at 14:27; Start 07/08/21 at 14:00; Stop 07/08/21 at 14:29; Status DC Dexamethasone Sodium Phosphate (Decadron) 10 mg 1X ONCE IV Last administered on 07/08/21at 14:26; Start 07/08/21 at 14:00; Stop 07/08/21 at 14:01; Status DC Acetaminophen (Tylenol) 1,000 mg 1X ONCE PO Last administered on 07/08/21at 14:25; Start 07/08/21 at 14:00; Stop 07/08/21 at 14:01; Status DC Ascorbic Acid (Vitamin C) 3,000 mg TID PO Last administered on 07/14/21at 09:55; Start 07/08/21 at 21:00 Methylprednisolone Sodium Succinate (SOLU-Medrol 125MG VIAL) 125 mg Q8HRS IV Last administered on 07/14/21at 05:38; Start 07/08/21 at 22:00; Stop 07/14/21 at 08:44; Status DC Thiamine Mononitrate (Vitamin B-1) 300 mg DAILY PO Last administered on 07/14/21 09:54; Start 07/08/21 at 16:00 Zinc Sulfate (Orazinc) 220 mg DAILY PO Last administered on 07/14/21at 09:55; Start 07/08/21 at 16:00 Sennosides (Senna) 17.2 mg PRN BID PRN PO CONSTIPATION; Start 07/08/21 at 15:45 Docusate Sodium (Colace) 100 mg PRN DAILY PRN PO HARD STOOLS; Start 07/08/21 at 15:45 Ondansetron HCl (Zofran) 4 mg PRN Q6HRS PRN IVP NAUSEA/VOMITING, 1st CHOICE; Start 07/08/21 at 15:45 Dextrose (Dextrose 50%-Water Syringe) 12.5 gm PRN Q15MIN PRN IV SEE COMMENTS; Start 07/08/21 at 15:45 Sodium Chloride 1,000 ml @ 100 mls/hr Q10H IV Last administered on 07/13/21at 16:33; Start 07/08/21 at 17:00 Acetaminophen (Tylenol) 650 mg PRN Q4HRS PRN PO TEMP OVER 100.4F OR MILD PAIN Last administered on 07/09/21at 00:04; Start 07/08/21 at 15:45 Enoxaparin Sodium (Lovenox 40mg Syringe) 40 mg Q24H SQ Last administered on 07/13/21at 19:16; Start 07/08/21 at 21:00 Pantoprazole Sodium (Protonix) 40 mg DAILYAC PO Last administered on 07/14/21at 09:55; Start 07/08/21 at 16:30 Prochlorperazine Edisylate (Compazine) 10 mg PRN Q6HRS PRN IV NAUSEA/VOMITING, 2nd CHOICE; Start 07/08/21 at 15:45 Ondansetron HCl (Zofran) 4 mg PRN Q8HRS PRN IVP NAUSEA/VOMITING; Start 07/08/21 at 16:30; Stop 07/09/21 at 14:48; Status DC Morphine Sulfate (Morphine Sulfate) 2 mg PRN Q2HR PRN IVP PAIN; Start 07/08/21 at 16:30; Stop 07/09/21 at 16:29; Status DC Acetaminophen (Tylenol) 650 mg PRN Q4HRS PRN PO FEVER > 100.3'F; Start 07/08/21 at 16:30; Stop 07/09/21 at 14:48; Status DC Remdesivir 200 mg/ Sodium Chloride 210 ml @ 210 mls/hr 1X ONCE IV Last administered on 07/09/21at 00:04; Start 07/08/21 at 22:30; Stop 07/08/21 at 23:29; Status DC Remdesivir 100 mg/ Sodium Chloride 230 ml @ 460 mls/hr Q24H IV Last administered on 07/12/21at 20:14; Start 07/09/21 at 21:00; Stop 07/12/21 at 21:29; Status DC Lorazepam (Ativan) 0.25 mg Q6HRS PRN PO ANXIETY / AGITATION Last administered on 07/09/21at 12:59; Start 07/09/21 at 13:00 Sterile Water (WATER for RESP) 1,000 ml CONT PRN INH VIA VAPOTHERM DEVICE Last administered on 07/13/21at 09:20; Start 07/11/21 at 15:45 Prednisone (Prednisone) 40 mg DAILY PO Last administered on 07/14/21at 09:55; Start 07/14/21 at 09:00 Vitals/I & O Vital Sign - Last 24 Hours 07/13/21 07/13/21 07/13/21 07/13/21 10:16 11:00 12:29 15:00 Temp 97.6 97.9 97.6 97.9 Pulse 69 75 Resp 18 18 B/P (MAP) 126/76 (93) 135/88 (104) Pulse Ox 99 97 100 97 O2 Delivery High Flow Nasal Cannula Room Air High Flow Nasal Cannula Room Air O2 Flow Rate 40.0 40.0 07/13/21 07/13/21 07/13/21 07/13/21 16:15 18:03 19:15 20:00 Temp 97.9 97.9 Pulse 83 Resp 18 B/P (MAP) 132/79 (96) Pulse Ox 98 98 96 O2 Delivery High Flow Nasal Cannula High Flow Nasal Cannula Room Air Vapotherm O2 Flow Rate 35.0 30.0 40.0 07/13/21 07/14/21 07/14/21 07/14/21 23:01 01:51 03:14 03:30 Temp 97.8 98.3 97.8 98.3 Pulse 72 63 Resp 16 18 B/P (MAP) 124/78 (93) 140/95 (110) Pulse Ox 96 97 97 98 O2 Delivery Room Air High Flow Nasal Cannula Room Air High Flow Nasal Cannula O2 Flow Rate 30.0 30.0 07/14/21 07/14/21 07/14/21 07/14/21 06:21 06:30 08:20 09:13 Temp 97.5 97.5 Pulse 68 Resp 16 B/P (MAP) 134/86 (102) Pulse Ox 94 93 93 94 O2 Delivery High Flow Nasal Cannula Room Air Nasal Cannula Nasal Cannula O2 Flow Rate 30.0 5.0 4.5 Intake and Output 07/13/21 07/13/21 07/14/21 15:00 23:00 07:00 Intake Total 1180 ml 2180 ml 0 ml Output Total 1350 ml 900 ml 300 ml Balance -170 ml 1280 ml -300 ml Justicifation of Admission Dx: Justifications for Admission: Justification of Admission Dx: Yes Sepsis: Hypoxemia DAKOTA BAY MD Jul 14, 2021 10:06
[2021-07-14 11:18] VITALS: BP 136/85
--- NOTE | 2021-07-14 11:51 | NUR ---
SS following up with discharge planning. SS reviewed pt chart and discussed with pt RN. Pt is currently requiring oxygen at five liters nasal canula. Pt had negative COVID19 test. Self pay. Med Assist following. Discharge plan is currently to home when medically ready for discharge. Pt has no home oxygen. SS will continue to follow for discharge planning.
[2021-07-14 15:33] VITALS: BP 128/76
[2021-07-14 19:54] VITALS: BP 139/90
[2021-07-14] MEDS: ENOXAPARIN 40 MG/0.4 ML SYRINGE. SQ SCH (21:02)
[2021-07-14 22:47] VITALS: BP 130/95
[2021-07-15 03:03] VITALS: BP 133/88
[2021-07-15 07:48] LABS: BASO % 0 % (0-3); EOS % 0 % (0-3); HEMATOCRIT 39.4 % (39.0-53.0); HEMOGLOBIN 13.7 g/dL (13.0-17.5); LYMPH # 2.7 x10^3/uL (1.0-4.8); LYMPH % 27 % (24-48); MEAN CORPUSCULAR HEMOGLOBIN 31 pg (25-35); MEAN CORPUSCULAR HGB CONC 35 g/dL (31-37); MEAN CORPUSCULAR VOLUME 88 fL (79-100); MONO # 0.7 x10^3/uL (0.0-1.1); MONO % 7 % (0-9); NEUT # 6.6 x10^3/uL (1.8-7.7); NEUT % 66 % (31-73); PLATELET COUNT 414 x10^3/uL (140-400); RED CELL DISTRIBUTION WIDTH 12.7 % (11.5-14.5)
--- NOTE | 2021-07-15 08:22 | PDOC ---
PULMONARY PROGRESS NOTES DATE: 07/15/21 TIME: 08:20 Subjective Patient is feeling much better , on 2 litres afebrile no overnight concerns Vitals Vital Signs Date Time Temp Pulse Resp B/P (MAP) Pulse Ox O2 Delivery O2 Flow Rate FiO2 07/15/21 03:03 98.0 61 18 133/88 (103) 93 Nasal Cannula 2.0 98.0 Comments visual exam done, RRR no paradoxical breathing vapotherm Labs Laboratory Tests Test 07/15/21 07:15 White Blood Count 10.0 x10^3/uL (4.0-11.0) Red Blood Count 4.50 x10^6/uL (4.30-5.70) Hemoglobin 13.7 g/dL (13.0-17.5) Hematocrit 39.4 % (39.0-53.0) Mean Corpuscular Volume 88 fL (79-100) Mean Corpuscular Hemoglobin 31 pg (25-35) Mean Corpuscular Hemoglobin Concent 35 g/dL (31-37) Red Cell Distribution Width 12.7 % (11.5-14.5) Platelet Count 414 x10^3/uL (140-400) Neutrophils (%) (Auto) 66 % (31-73) Lymphocytes (%) (Auto) 27 % (24-48) Monocytes (%) (Auto) 7 % (0-9) Eosinophils (%) (Auto) 0 % (0-3) Basophils (%) (Auto) 0 % (0-3) Neutrophils # (Auto) 6.6 x10^3/uL (1.8-7.7) Lymphocytes # (Auto) 2.7 x10^3/uL (1.0-4.8) Monocytes # (Auto) 0.7 x10^3/uL (0.0-1.1) Eosinophils # (Auto) 0.0 x10^3/uL (0.0-0.7) Basophils # (Auto) 0.0 x10^3/uL (0.0-0.2) Laboratory Tests Test 07/15/21 07:15 White Blood Count 10.0 x10^3/uL (4.0-11.0) Red Blood Count 4.50 x10^6/uL (4.30-5.70) Hemoglobin 13.7 g/dL (13.0-17.5) Hematocrit 39.4 % (39.0-53.0) Mean Corpuscular Volume 88 fL (79-100) Mean Corpuscular Hemoglobin 31 pg (25-35) Mean Corpuscular Hemoglobin Concent 35 g/dL (31-37) Red Cell Distribution Width 12.7 % (11.5-14.5) Platelet Count 414 x10^3/uL (140-400) Neutrophils (%) (Auto) 66 % (31-73) Lymphocytes (%) (Auto) 27 % (24-48) Monocytes (%) (Auto) 7 % (0-9) Eosinophils (%) (Auto) 0 % (0-3) Basophils (%) (Auto) 0 % (0-3) Neutrophils # (Auto) 6.6 x10^3/uL (1.8-7.7) Lymphocytes # (Auto) 2.7 x10^3/uL (1.0-4.8) Monocytes # (Auto) 0.7 x10^3/uL (0.0-1.1) Eosinophils # (Auto) 0.0 x10^3/uL (0.0-0.7) Basophils # (Auto) 0.0 x10^3/uL (0.0-0.2) Impression . 1. Acute hypoxic respiratory failure, secondary to COVID-19 viral pneumonia/acute respiratory distress syndrome/acute lung injury.--improving 2. Abnormal chest x-ray with bilateral interstitial infiltrates, consistent with COVID-19 viral pneumonia. Plan . Continue supplemental oxygen to keep sats above 92%, currently on 2 litres 6 min walk before DC po steroids with taper S/P Remdesivir DVT/GI PPX:lovenox D/W RN and RT ok with dc home will sign off KIRK CASTRO MD Jul 15, 2021 08:22
[2021-07-15 08:49] LABS: ALBUMIN 2.5 g/dL (3.4-5.0); ALBUMIN/GLOBULIN RATIO 0.7 (1.0-1.7); CREATININE 0.7 mg/dL (0.7-1.3); GFR 132.4; TOTAL BILIRUBIN 0.6 mg/dL (0.2-1.0); TOTAL PROTEIN 6.2 g/dL (6.4-8.2)
--- NOTE | 2021-07-15 09:05 | PDOC ---
PROGRESS NOTES Date of Service: DATE: 07/15/21 TIME: 09:05 Chief Complaint Chief Complaint impression Acute hypoxic respiratory failure Covid pneumonia Acute electrolyte derangementhyponatremia, hypochloremia due to volume depletion Mild transaminitis Lymphopenia Moderate protein malnutrition History of Present Illness History of Present Illness Patient is a 31-year-old Zambian-speaking male with no significant past medical history who presents to the ED with shortness of breath a few days ago but definitely got worse today.. He was actually tested for Covid 9 days ago by sending service. It came back positive a few days ago. When EMS came to pick him up he was found to be 84% on room air at home. Patient currently denies any fevers, abdominal pain, chest pain, dysuria or bloody stools or diarrhea. Patient is not vaccinated for Covid. 07/09/21 Is able to bedside. She is on a significant amount of nasal cannula however no signs of worsening respiratory status. No complaints. Continuing Covid protocol. Will wean oxygen as tolerated. 07/10/2021 No acute events overnight. Patient saturating 95% and increasing O2 requirements to 15 L nonrebreather. T-max of 99.9 overnight. We will continue with current Covid protocol treatment. Patient's chart, labs, images were reviewed and discussed with RN In addition to my E/M visit, advance care planning done with A total time of 20 minutes was spent from 1030 to 1050 over the phone in discussion with the sister regarding the patient's goals of care, CODE STATUS. 07/11/2021 No acute events overnight. Patient saturating 94% on 15 L nonrebreather. Influenza tested was negative for a and B. Patient's chart, labs, images were reviewed and discussed with RN 07/13/2021 Patient was awake and alert with NAD. Seen and examined in bed. D/W RN, Chart Review Patient saturating 94% on vapotherm 30L continue treatment plan and monitor for improvement. inish the course of steroids. Continue remdesivir per protocol. Lovenox for DVT prophylaxis. 07/14/2021 Patient was awake and alert with NAD. Seen and examined in bed. D/W RN, Chart Review Patient saturating 99% on vapotherm 40L of 90% O2. continue treatment plan and monitor for improvement. inish the course of steroids. Continue remdesivir per protocol. Lovenox for DVT prophylaxis. 07/15/2021 Patient was awake and alert with NAD. Seen and examined in bed. D/W RN, Chart Review Patient saturating 2 LITERS NC continue treatment plan and monitor for improvement. inish the course of steroids. Continue remdesivir per protocol. Lovenox for DVT prophylaxis. Continue supplemental oxygen to keep sats above 92%, currently on 2 litres 6 min walk before DC po steroids with taper S/P Remdesivir DVT/GI PPX:lovenox D/W RN and RT PULMONARY ok with dc home 07-15 d/c planning 32 min Vitals Vitals Vital Signs Date Time Temp Pulse Resp B/P (MAP) Pulse Ox O2 Delivery O2 Flow Rate FiO2 07/15/21 08:22 92 Room Air 07/15/21 03:03 98.0 61 18 133/88 (103) 2.0 98.0 Physical Exam General: Alert, Oriented X3, Cooperative Heart: Regular rate, Normal S1, Normal S2 Abdomen: Normal bowel sounds, Soft, No tenderness Extremities: No clubbing, No cyanosis, No edema, Normal pulses Skin: No rashes, No significant lesion Labs LABS Laboratory Tests Test 07/15/21 07:15 White Blood Count 10.0 x10^3/uL (4.0-11.0) Red Blood Count 4.50 x10^6/uL (4.30-5.70) Hemoglobin 13.7 g/dL (13.0-17.5) Hematocrit 39.4 % (39.0-53.0) Mean Corpuscular Volume 88 fL (79-100) Mean Corpuscular Hemoglobin 31 pg (25-35) Mean Corpuscular Hemoglobin Concent 35 g/dL (31-37) Red Cell Distribution Width 12.7 % (11.5-14.5) Platelet Count 414 x10^3/uL (140-400) Neutrophils (%) (Auto) 66 % (31-73) Lymphocytes (%) (Auto) 27 % (24-48) Monocytes (%) (Auto) 7 % (0-9) Eosinophils (%) (Auto) 0 % (0-3) Basophils (%) (Auto) 0 % (0-3) Neutrophils # (Auto) 6.6 x10^3/uL (1.8-7.7) Lymphocytes # (Auto) 2.7 x10^3/uL (1.0-4.8) Monocytes # (Auto) 0.7 x10^3/uL (0.0-1.1) Eosinophils # (Auto) 0.0 x10^3/uL (0.0-0.7) Basophils # (Auto) 0.0 x10^3/uL (0.0-0.2) Sodium Level 138 mmol/L (136-145) Potassium Level 4.0 mmol/L (3.5-5.1) Chloride Level 103 mmol/L (98-107) Carbon Dioxide Level 26 mmol/L (21-32) Anion Gap 9 (6-14) Blood Urea Nitrogen 19 mg/dL (8-26) Creatinine 0.7 mg/dL (0.7-1.3) Estimated GFR (Cockcroft-Gault) 132.4 BUN/Creatinine Ratio 27 (6-20) Glucose Level 93 mg/dL (70-99) Calcium Level 8.0 mg/dL (8.5-10.1) Total Bilirubin 0.6 mg/dL (0.2-1.0) Aspartate Amino Transf (AST/SGOT) 28 U/L (15-37) Alanine Aminotransferase (ALT/SGPT) 89 U/L (16-63) Alkaline Phosphatase 36 U/L (46-116) Total Protein 6.2 g/dL (6.4-8.2) Albumin 2.5 g/dL (3.4-5.0) Albumin/Globulin Ratio 0.7 (1.0-1.7) Assessment and Plan Assessmemt and Plan Problems Medical Problems: (1) Bilateral pneumonia Status: Acute (2) Fever Status: Acute (3) Hypoxia Status: Acute (4) Lab test positive for detection of COVID-19 virus Status: Acute Comment Review of Relevant I have reviewed the following items irving (where applicable) has been applied. Labs Laboratory Tests Test 07/15/21 07:15 White Blood Count 10.0 x10^3/uL (4.0-11.0) Red Blood Count 4.50 x10^6/uL (4.30-5.70) Hemoglobin 13.7 g/dL (13.0-17.5) Hematocrit 39.4 % (39.0-53.0) Mean Corpuscular Volume 88 fL (79-100) Mean Corpuscular Hemoglobin 31 pg (25-35) Mean Corpuscular Hemoglobin Concent 35 g/dL (31-37) Red Cell Distribution Width 12.7 % (11.5-14.5) Platelet Count 414 x10^3/uL (140-400) Neutrophils (%) (Auto) 66 % (31-73) Lymphocytes (%) (Auto) 27 % (24-48) Monocytes (%) (Auto) 7 % (0-9) Eosinophils (%) (Auto) 0 % (0-3) Basophils (%) (Auto) 0 % (0-3) Neutrophils # (Auto) 6.6 x10^3/uL (1.8-7.7) Lymphocytes # (Auto) 2.7 x10^3/uL (1.0-4.8) Monocytes # (Auto) 0.7 x10^3/uL (0.0-1.1) Eosinophils # (Auto) 0.0 x10^3/uL (0.0-0.7) Basophils # (Auto) 0.0 x10^3/uL (0.0-0.2) Sodium Level 138 mmol/L (136-145) Potassium Level 4.0 mmol/L (3.5-5.1) Chloride Level 103 mmol/L (98-107) Carbon Dioxide Level 26 mmol/L (21-32) Anion Gap 9 (6-14) Blood Urea Nitrogen 19 mg/dL (8-26) Creatinine 0.7 mg/dL (0.7-1.3) Estimated GFR (Cockcroft-Gault) 132.4 BUN/Creatinine Ratio 27 (6-20) Glucose Level 93 mg/dL (70-99) Calcium Level 8.0 mg/dL (8.5-10.1) Total Bilirubin 0.6 mg/dL (0.2-1.0) Aspartate Amino Transf (AST/SGOT) 28 U/L (15-37) Alanine Aminotransferase (ALT/SGPT) 89 U/L (16-63) Alkaline Phosphatase 36 U/L (46-116) Total Protein 6.2 g/dL (6.4-8.2) Albumin 2.5 g/dL (3.4-5.0) Albumin/Globulin Ratio 0.7 (1.0-1.7) Laboratory Tests Test 07/15/21 07:15 White Blood Count 10.0 x10^3/uL (4.0-11.0) Red Blood Count 4.50 x10^6/uL (4.30-5.70) Hemoglobin 13.7 g/dL (13.0-17.5) Hematocrit 39.4 % (39.0-53.0) Mean Corpuscular Volume 88 fL (79-100) Mean Corpuscular Hemoglobin 31 pg (25-35) Mean Corpuscular Hemoglobin Concent 35 g/dL (31-37) Red Cell Distribution Width 12.7 % (11.5-14.5) Platelet Count 414 x10^3/uL (140-400) Neutrophils (%) (Auto) 66 % (31-73) Lymphocytes (%) (Auto) 27 % (24-48) Monocytes (%) (Auto) 7 % (0-9) Eosinophils (%) (Auto) 0 % (0-3) Basophils (%) (Auto) 0 % (0-3) Neutrophils # (Auto) 6.6 x10^3/uL (1.8-7.7) Lymphocytes # (Auto) 2.7 x10^3/uL (1.0-4.8) Monocytes # (Auto) 0.7 x10^3/uL (0.0-1.1) Eosinophils # (Auto) 0.0 x10^3/uL (0.0-0.7) Basophils # (Auto) 0.0 x10^3/uL (0.0-0.2) Sodium Level 138 mmol/L (136-145) Potassium Level 4.0 mmol/L (3.5-5.1) Chloride Level 103 mmol/L (98-107) Carbon Dioxide Level 26 mmol/L (21-32) Anion Gap 9 (6-14) Blood Urea Nitrogen 19 mg/dL (8-26) Creatinine 0.7 mg/dL (0.7-1.3) Estimated GFR (Cockcroft-Gault) 132.4 BUN/Creatinine Ratio 27 (6-20) Glucose Level 93 mg/dL (70-99) Calcium Level 8.0 mg/dL (8.5-10.1) Total Bilirubin 0.6 mg/dL (0.2-1.0) Aspartate Amino Transf (AST/SGOT) 28 U/L (15-37) Alanine Aminotransferase (ALT/SGPT) 89 U/L (16-63) Alkaline Phosphatase 36 U/L (46-116) Total Protein 6.2 g/dL (6.4-8.2) Albumin 2.5 g/dL (3.4-5.0) Albumin/Globulin Ratio 0.7 (1.0-1.7) Microbiology 07/08/21 Blood Culture - Final, Complete NO GROWTH AFTER 5 DAYS Medications Current Medications Sodium Chloride 1,000 ml @ 1,860 mls/hr Q33M IV Last administered on 07/08/21at 15:18; Start 07/08/21 at 14:00; Stop 07/08/21 at 15:00; Status DC Piperacillin Sod/ Tazobactam Sod 4.5 gm/Sodium Chloride 100 ml @ 200 mls/hr 1X ONCE IV Last administered on 07/08/21at 14:27; Start 07/08/21 at 14:00; Stop 07/08/21 at 14:29; Status DC Dexamethasone Sodium Phosphate (Decadron) 10 mg 1X ONCE IV Last administered on 07/08/21at 14:26; Start 07/08/21 at 14:00; Stop 07/08/21 at 14:01; Status DC Acetaminophen (Tylenol) 1,000 mg 1X ONCE PO Last administered on 07/08/21at 14:25; Start 07/08/21 at 14:00; Stop 07/08/21 at 14:01; Status DC Ascorbic Acid (Vitamin C) 3,000 mg TID PO Last administered on 07/14/21at 21:02; Start 07/08/21 at 21:00 Methylprednisolone Sodium Succinate (SOLU-Medrol 125MG VIAL) 125 mg Q8HRS IV Last administered on 07/14/21at 05:38; Start 07/08/21 at 22:00; Stop 07/14/21 at 08:44; Status DC Thiamine Mononitrate (Vitamin B-1) 300 mg DAILY PO Last administered on 07/14/21at 09:54; Start 07/08/21 at 16:00 Zinc Sulfate (Orazinc) 220 mg DAILY PO Last administered on 07/14/21at 09:55; Start 07/08/21 at 16:00 Sennosides (Senna) 17.2 mg PRN BID PRN PO CONSTIPATION; Start 07/08/21 at 15:45 Docusate Sodium (Colace) 100 mg PRN DAILY PRN PO HARD STOOLS; Start 07/08/21 at 15:45 Ondansetron HCl (Zofran) 4 mg PRN Q6HRS PRN IVP NAUSEA/VOMITING, 1st CHOICE; Start 07/08/21 at 15:45 Dextrose (Dextrose 50%-Water Syringe) 12.5 gm PRN Q15MIN PRN IV SEE COMMENTS; Start 07/08/21 at 15:45 Sodium Chloride 1,000 ml @ 100 mls/hr Q10H IV Last administered on 07/14/21at 16:58; Start 07/08/21 at 17:00 Acetaminophen (Tylenol) 650 mg PRN Q4HRS PRN PO TEMP OVER 100.4F OR MILD PAIN Last administered on 07/09/21at 00:04; Start 07/08/21 at 15:45 Enoxaparin Sodium (Lovenox 40mg Syringe) 40 mg Q24H SQ Last administered on 07/14/21at 21:02; Start 07/08/21 at 21:00 Pantoprazole Sodium (Protonix) 40 mg DAILYAC PO Last administered on 07/14/21at 09:55; Start 07/08/21 at 16:30 Prochlorperazine Edisylate (Compazine) 10 mg PRN Q6HRS PRN IV NAUSEA/VOMITING, 2nd CHOICE; Start 07/08/21 at 15:45 Ondansetron HCl (Zofran) 4 mg PRN Q8HRS PRN IVP NAUSEA/VOMITING; Start 07/08/21 at 16:30; Stop 07/09/21 at 14:48; Status DC Morphine Sulfate (Morphine Sulfate) 2 mg PRN Q2HR PRN IVP PAIN; Start 07/08/21 at 16:30; Stop 07/09/21 at 16:29; Status DC Acetaminophen (Tylenol) 650 mg PRN Q4HRS PRN PO FEVER > 100.3'F; Start 07/08/21 at 16:30; Stop 07/09/21 at 14:48; Status DC Remdesivir 200 mg/ Sodium Chloride 210 ml @ 210 mls/hr 1X ONCE IV Last administered on 07/09/21at 00:04; Start 07/08/21 at 22:30; Stop 07/08/21 at 23:29; Status DC Remdesivir 100 mg/ Sodium Chloride 230 ml @ 460 mls/hr Q24H IV Last administered on 07/12/21at 20:14; Start 07/09/21 at 21:00; Stop 07/12/21 at 21:29; Status DC Lorazepam (Ativan) 0.25 mg Q6HRS PRN PO ANXIETY / AGITATION Last administered on 07/09/21at 12:59; Start 07/09/21 at 13:00 Sterile Water (WATER for RESP) 1,000 ml CONT PRN INH VIA VAPOTHERM DEVICE Last administered on 07/13/21at 09:20; Start 07/11/21 at 15:45 Prednisone (Prednisone) 40 mg DAILY PO Last administered on 07/14/21at 09:55; Start 07/14/21 at 09:00 Vitals/I & O Vital Sign - Last 24 Hours 07/14/21 07/14/21 07/14/21 07/14/21 09:13 11:18 15:33 17:02 Temp 98.4 98.5 98.4 98.5 Pulse 93 86 Resp 18 18 B/P (MAP) 136/85 (102) 128/76 (93) Pulse Ox 94 92 95 95 O2 Delivery Nasal Cannula Nasal Cannula Nasal Cannula Nasal Cannula O2 Flow Rate 4.5 2.0 07/14/21 07/14/21 07/14/21 07/15/21 19:54 20:20 22:47 03:03 Temp 98.3 98.1 98.0 98.3 98.1 98.0 Pulse 83 76 61 Resp 18 18 18 B/P (MAP) 139/90 (106) 130/95 (107) 133/88 (103) Pulse Ox 95 93 93 O2 Delivery Nasal Cannula Nasal Cannula Nasal Cannula Nasal Cannula O2 Flow Rate 2.0 2.0 2.0 2.0 07/15/21 08:22 Pulse Ox 92 O2 Delivery Room Air Intake and Output 07/14/21 07/14/21 07/15/21 15:00 23:00 07:00 Intake Total 420 ml 1800 ml 300 ml Output Total 1000 ml 1900 ml 800 ml Balance -580 ml -100 ml -500 ml Justicifation of Admission Dx: Justifications for Admission: Justification of Admission Dx: Yes Sepsis: Hypoxemia DAK[place] B[place] MD Jul 15, 2021 09:05
[2021-07-15 09:09] LABS: C-REACTIVE PROTEIN 1.5 mg/L (0-3.3)
[2021-07-15] MEDS: predniSONE 20 MG TABLET PO SCH (09:15)
[2021-07-15] MEDS: THIAMINE 100 MG TABLET. PO SCH (09:15)
[2021-07-15] MEDS: ASCORBIC ACID 1,000 MG TABLET PO SCH ×2 (09:15→15:43)
[2021-07-15] MEDS: PANTOPRAZOLE 40 MG TABLET.DR. PO SCH (09:15)
[2021-07-15] MEDS: ZINC SULFATE 220 MG CAPSULE. PO SCH (09:15)
[2021-07-15 11:00] VITALS: BP 119/76
--- NOTE | 2021-07-15 11:41 | NUR ---
SS following up with discharge planning. SS reviewed pt chart and discussed with pt RN. Pt is currently requiring oxygen at two liters nasal canula. Pt had negative COVID19 test. Self pay. [facility] following. Discharge plan is currently to home when medically ready for discharge. Pt has no home oxygen. Six minute walk ordered. SS will continue to follow for discharge planning.
--- NOTE | 2021-07-15 13:51 | PDOC3 ---
Discharge Summary Date of Admission: Jul 08, 2021 Date of Discharge: Jul 15, 2021 Follow-Up: 3-5 days Admitting Diagnosis comment: History of Present Illness History of Present Illness Patient is a 31-year-old Welsh-speaking male with no significant past medical history who presents to the ED with shortness of breath a few days ago but definitely got worse today.. He was actually tested for Covid 9 days ago by sending service. It came back positive a few days ago. When EMS came to pick him up he was found to be 84% on room air at home. Patient currently denies any fevers, abdominal pain, chest pain, dysuria or bloody stools or diarrhea. Patient is not vaccinated for Covid. CONSULTS PULMONARY COMPLICATIONS NONE D/C CONDITION GOOD F/U PCP IN 3-7 DAYS D/C MEDS SEE MAR DISCHARGE DX impression Acute hypoxic respiratory failure Covid pneumonia Acute electrolyte derangementhyponatremia, hypochloremia due to volume depletion Mild transaminitis Lymphopenia Moderate protein malnutrition History of Present Illness History of Present Illness Patient is a 31-year-old Welsh-speaking male with no significant past medical history who presents to the ED with shortness of breath a few days ago but definitely got worse today.. He was actually tested for Covid 9 days ago by sending service. It came back positive a few days ago. When EMS came to pick him up he was found to be 84% on room air at home. Patient currently denies any fevers, abdominal pain, chest pain, dysuria or bloody stools or diarrhea. Patient is not vaccinated for Covid. HOSPITAL COURSE 07/09/21 Is able to bedside. She is on a significant amount of nasal cannula however no signs of worsening respiratory status. No complaints. Continuing Covid protocol. Will wean oxygen as tolerated. 07/10/2021 No acute events overnight. Patient saturating 95% and increasing O2 requirements to 15 L nonrebreather. T-max of 99.9 overnight. We will continue with current Covid protocol treatment. Patient's chart, labs, images were reviewed and discussed with RN In addition to my E/M visit, advance care planning done with A total time of 20 minutes was spent from 1030 to 1050 over the phone in discussion with the sister regarding the patient's goals of care, CODE STATUS. 07/11/2021 No acute events overnight. Patient saturating 94% on 15 L nonrebreather. Influenza tested was negative for a and B. Patient's chart, labs, images were reviewed and discussed with RN 07/13/2021 Patient was awake and alert with NAD. Seen and examined in bed. D/W RN, Chart Review Patient saturating 94% on vapotherm 30L continue treatment plan and monitor for improvement. inish the course of steroids. Continue remdesivir per protocol. Lovenox for DVT prophylaxis. 07/14/2021 Patient was awake and alert with NAD. Seen and examined in bed. D/W RN, Chart Review Patient saturating 99% on vapotherm 40L of 90% O2. continue treatment plan and monitor for improvement. inish the course of steroids. Continue remdesivir per protocol. Lovenox for DVT prophylaxis. 07/15/2021 Patient was awake and alert with NAD. Seen and examined in bed. D/W RN, Chart Review Patient saturating 2 LITERS NC continue treatment plan and monitor for improvement. inish the course of steroids. Continue remdesivir per protocol. Lovenox for DVT prophylaxis. Continue supplemental oxygen to keep sats above 92%, currently on 2 litres 6 min walk before DC po steroids with taper S/P Remdesivir DVT/GI PPX:lovenox D/W RN and RT PULMONARY ok with dc home 8- d/c planning 32 min Vitals Vitals Vital Signs Date Time Temp Pulse Resp B/P (MAP) Pulse Ox O2 Delivery O2 Flow Rate FiO2 07/15/21 08:22 92 Room Air 07/15/21 03:03 98.0 61 18 133/88 (103) 2.0 98.0 Physical Exam General: Alert, Oriented X3, Cooperative Heart: Regular rate, Normal S1, Normal S2 Abdomen: Normal bowel sounds, Soft, No tenderness Extremities: No clubbing, No cyanosis, No edema, Normal pulses Skin: No rashes, No significant lesion FINAL DIAGNOSIS Problems Medical Problems: (1) Bilateral pneumonia Status: Acute (2) Fever Status: Acute (3) Hypoxia Status: Acute (4) Lab test positive for detection of COVID-19 virus Status: Acute Brief Hospital Course Mr. Yanez is a 31 old [sex] who presented with [COVID PNEUMONIA ] CONDITION AT DISCHARGE: Improved Discharge Medications Current Medications Sodium Chloride 1,000 ml @ 1,860 mls/hr Q33M IV Last administered on 07/08/21at 15:18; Start 07/08/21 at 14:00; Stop 07/08/21 at 15:00; Status DC Piperacillin Sod/ Tazobactam Sod 4.5 gm/Sodium Chloride 100 ml @ 200 mls/hr 1X ONCE IV Last administered on 07/08/21at 14:27; Start 07/08/21 at 14:00; Stop 07/08/21 at 14:29; Status DC Dexamethasone Sodium Phosphate (Decadron) 10 mg 1X ONCE IV Last administered on 07/08/21at 14:26; Start 07/08/21 at 14:00; Stop 07/08/21 at 14:01; Status DC Acetaminophen (Tylenol) 1,000 mg 1X ONCE PO Last administered on 07/08/21at 14:25; Start 07/08/21 at 14:00; Stop 07/08/21 at 14:01; Status DC Ascorbic Acid (Vitamin C) 3,000 mg TID PO Last administered on 07/15/21at 09:15; Start 07/08/21 at 21:00 Methylprednisolone Sodium Succinate (SOLU-Medrol 125MG VIAL) 125 mg Q8HRS IV Last administered on 07/14/21at 05:38; Start 07/08/21 at 22:00; Stop 07/14/21 at 08:44; Status DC Thiamine Mononitrate (Vitamin B-1) 300 mg DAILY PO Last administered on 07/15/21at 09:15; Start 07/08/21 at 16:00 Zinc Sulfate (Orazinc) 220 mg DAILY PO Last administered on 07/15/21at 09:15; Start 07/08/21 at 16:00 Sennosides (Senna) 17.2 mg PRN BID PRN PO CONSTIPATION; Start 07/08/21 at 15:45 Docusate Sodium (Colace) 100 mg PRN DAILY PRN PO HARD STOOLS; Start 07/08/21 at 15:45 Ondansetron HCl (Zofran) 4 mg PRN Q6HRS PRN IVP NAUSEA/VOMITING, 1st CHOICE; Start 07/08/21 at 15:45 Dextrose (Dextrose 50%-Water Syringe) 12.5 gm PRN Q15MIN PRN IV SEE COMMENTS; Start 07/08/21 at 15:45 Sodium Chloride 1,000 ml @ 100 mls/hr Q10H IV Last administered on 07/14/21at 16:58; Start 07/08/21 at 17:00 Acetaminophen (Tylenol) 650 mg PRN Q4HRS PRN PO TEMP OVER 100.4F OR MILD PAIN Last administered on 07/09/21at 00:04; Start 07/08/21 at 15:45 Enoxaparin Sodium (Lovenox 40mg Syringe) 40 mg Q24H SQ Last administered on 07/14/21at 21:02; Start 07/08/21 at 21:00 Pantoprazole Sodium (Protonix) 40 mg DAILYAC PO Last administered on 07/15/21at 09:15; Start 07/08/21 at 16:30 Prochlorperazine Edisylate (Compazine) 10 mg PRN Q6HRS PRN IV NAUSEA/VOMITING, 2nd CHOICE; Start 07/08/21 at 15:45 Ondansetron HCl (Zofran) 4 mg PRN Q8HRS PRN IVP NAUSEA/VOMITING; Start 07/08/21 at 16:30; Stop 07/09/21 at 14:48; Status DC Morphine Sulfate (Morphine Sulfate) 2 mg PRN Q2HR PRN IVP PAIN; Start 07/08/21 at 16:30; Stop 07/09/21 at 16:29; Status DC Acetaminophen (Tylenol) 650 mg PRN Q4HRS PRN PO FEVER > 100.3'F; Start 07/08/21 at 16:30; Stop 07/09/21 at 14:48; Status DC Remdesivir 200 mg/ Sodium Chloride 210 ml @ 210 mls/hr 1X ONCE IV Last administered on 07/09/21at 00:04; Start 07/08/21 at 22:30; Stop 07/08/21 at 23:29; Status DC Remdesivir 100 mg/ Sodium Chloride 230 ml @ 460 mls/hr Q24H IV Last administered on 07/12/21at 20:14; Start 07/09/21 at 21:00; Stop 07/12/21 at 21:29; Status DC Lorazepam (Ativan) 0.25 mg Q6HRS PRN PO ANXIETY / AGITATION Last administered on 07/09/21at 12:59; Start 07/09/21 at 13:00 Sterile Water (WATER for RESP) 1,000 ml CONT PRN INH VIA VAPOTHERM DEVICE Last administered on 07/13/21at 09:20; Start 07/11/21 at 15:45 Prednisone (Prednisone) 40 mg DAILY PO Last administered on 07/15/21at 09:15; Start 07/14/21 at 09:00 Vital Signs Vital Signs Date Time Temp Pulse Resp B/P (MAP) Pulse Ox O2 Delivery O2 Flow Rate FiO2 07/15/21 11:00 96.9 78 22 119/76 (90) 92 Room Air 96.9 07/15/21 08:00 2.0 Labs Laboratory Tests Test 07/15/21 07:15 White Blood Count 10.0 x10^3/uL (4.0-11.0) Red Blood Count 4.50 x10^6/uL (4.30-5.70) Hemoglobin 13.7 g/dL (13.0-17.5) Hematocrit 39.4 % (39.0-53.0) Mean Corpuscular Volume 88 fL (79-100) Mean Corpuscular Hemoglobin 31 pg (25-35) Mean Corpuscular Hemoglobin Concent 35 g/dL (31-37) Red Cell Distribution Width 12.7 % (11.5-14.5) Platelet Count 414 x10^3/uL (140-400) Neutrophils (%) (Auto) 66 % (31-73) Lymphocytes (%) (Auto) 27 % (24-48) Monocytes (%) (Auto) 7 % (0-9) Eosinophils (%) (Auto) 0 % (0-3) Basophils (%) (Auto) 0 % (0-3) Neutrophils # (Auto) 6.6 x10^3/uL (1.8-7.7) Lymphocytes # (Auto) 2.7 x10^3/uL (1.0-4.8) Monocytes # (Auto) 0.7 x10^3/uL (0.0-1.1) Eosinophils # (Auto) 0.0 x10^3/uL (0.0-0.7) Basophils # (Auto) 0.0 x10^3/uL (0.0-0.2) Sodium Level 138 mmol/L (136-145) Potassium Level 4.0 mmol/L (3.5-5.1) Chloride Level 103 mmol/L (98-107) Carbon Dioxide Level 26 mmol/L (21-32) Anion Gap 9 (6-14) Blood Urea Nitrogen 19 mg/dL (8-26) Creatinine 0.7 mg/dL (0.7-1.3) Estimated GFR (Cockcroft-Gault) 132.4 BUN/Creatinine Ratio 27 (6-20) Glucose Level 93 mg/dL (70-99) Calcium Level 8.0 mg/dL (8.5-10.1) Ferritin 1380 ng/mL (26-388) Total Bilirubin 0.6 mg/dL (0.2-1.0) Aspartate Amino Transf (AST/SGOT) 28 U/L (15-37) Alanine Aminotransferase (ALT/SGPT) 89 U/L (16-63) Alkaline Phosphatase 36 U/L (46-116) C-Reactive Protein, Quantitative 1.5 mg/L (0-3.3) Total Protein 6.2 g/dL (6.4-8.2) Albumin 2.5 g/dL (3.4-5.0) Albumin/Globulin Ratio 0.7 (1.0-1.7) Laboratory Tests Test 07/15/21 07:15 White Blood Count 10.0 x10^3/uL (4.0-11.0) Red Blood Count 4.50 x10^6/uL (4.30-5.70) Hemoglobin 13.7 g/dL (13.0-17.5) Hematocrit 39.4 % (39.0-53.0) Mean Corpuscular Volume 88 fL (79-100) Mean Corpuscular Hemoglobin 31 pg (25-35) Mean Corpuscular Hemoglobin Concent 35 g/dL (31-37) Red Cell Distribution Width 12.7 % (11.5-14.5) Platelet Count 414 x10^3/uL (140-400) Neutrophils (%) (Auto) 66 % (31-73) Lymphocytes (%) (Auto) 27 % (24-48) Monocytes (%) (Auto) 7 % (0-9) Eosinophils (%) (Auto) 0 % (0-3) Basophils (%) (Auto) 0 % (0-3) Neutrophils # (Auto) 6.6 x10^3/uL (1.8-7.7) Lymphocytes # (Auto) 2.7 x10^3/uL (1.0-4.8) Monocytes # (Auto) 0.7 x10^3/uL (0.0-1.1) Eosinophils # (Auto) 0.0 x10^3/uL (0.0-0.7) Basophils # (Auto) 0.0 x10^3/uL (0.0-0.2) Sodium Level 138 mmol/L (136-145) Potassium Level 4.0 mmol/L (3.5-5.1) Chloride Level 103 mmol/L (98-107) Carbon Dioxide Level 26 mmol/L (21-32) Anion Gap 9 (6-14) Blood Urea Nitrogen 19 mg/dL (8-26) Creatinine 0.7 mg/dL (0.7-1.3) Estimated GFR (Cockcroft-Gault) 132.4 BUN/Creatinine Ratio 27 (6-20) Glucose Level 93 mg/dL (70-99) Calcium Level 8.0 mg/dL (8.5-10.1) Ferritin 1380 ng/mL (26-388) Total Bilirubin 0.6 mg/dL (0.2-1.0) Aspartate Amino Transf (AST/SGOT) 28 U/L (15-37) Alanine Aminotransferase (ALT/SGPT) 89 U/L (16-63) Alkaline Phosphatase 36 U/L (46-116) C-Reactive Protein, Quantitative 1.5 mg/L (0-3.3) Total Protein 6.2 g/dL (6.4-8.2) Albumin 2.5 g/dL (3.4-5.0) Albumin/Globulin Ratio 0.7 (1.0-1.7) Allergies Allergies Coded Allergies Type Severity Reaction Last Updated Verified No Known Drug Allergies 07/08/21 No Disposition/Orders: D/C to Home Justicifation of Admission Dx: Justifications for Admission: Justification of Admission Dx: Yes Sepsis: Hypoxemia DAKOTA BAY MD Jul 15, 2021 13:50
[2021-07-15] MEDS ORDERED: PRED20TA PO (13:53)
[2021-07-15] MEDS ORDERED: PANT40TA77 PO (13:53)
[2021-07-15] MEDS ORDERED: ZINC220C5 PO (13:53)
[2021-07-15] MEDS ORDERED: ASCO100019 PO (13:53)
[2021-07-15] MEDS ORDERED: THIA100T22 PO (13:53)
--- NOTE | 2021-07-15 13:55 | DISCH ---
DISCHARGE INSTRUCTIONS Condition on Discharge Condition on Discharge: Stable Activity After Discharge Activity Instructions for Disc: Activity as tolerated Lifting Instructions after Dis: No heavy lifting, No pulling or pushing Driving Instructions after Dis: Do not drive today Diet after Discharge Diet after Discharge: Regular Liquid Texture: Thin Liquid Checks after Discharge Checks after discharge: Check blood press - daily Contacting the DRShannon after DC Call your doctor for: If your condition worsens Follow-Up Follow up with: SEE YOUR PCP IN 3-7 DAYS Treatment/Equipment after DC Adaptive Equipment Issued: None DAK[place] BAY MD Jul 15, 2021 13:54
--- NOTE | 2021-07-15 16:15 | NUR ---
Discharge Note: MARLYS KIM [address] [place] [address] Discharge instructions and discharge home medications reviewed with Patient and a copy given. All questions have been answered and understanding verbalized. The following instructions and handouts were given: discharge instructions, med list, covid education Discontinued lines and drains: Peripheral IV intact. Patient discharged to Home or Self Care with Spouse via Ambulated at 1615.
== END 2021-07-15 16:19 | disposition home or self-care (01) | DRG 177 ==
LOC: ER 13:14 → 5 NORTH 14:30 → 6 SOUTH 07-11 15:30
PROVIDERS: ADMIT Internal Medicine; ATTEND Internal Medicine
PROC: XW033E5 Introduction of Remdesivir Anti-infective into Peripheral Vein, Percutaneous Approach, New Technology Group 5 (ICD-10-PCS; principal; 2021-07-08)
PROC: 5A0935A Assistance with Respiratory Ventilation, Less than 24 Consecutive Hours, High Flow/Velocity Cannula (ICD-10-PCS; 2021-07-13)
PROC: 5A0935A Assistance with Respiratory Ventilation, Less than 24 Consecutive Hours, High Flow/Velocity Cannula (ICD-10-PCS; 2021-07-14)
DX: U07.1 COVID-19 (principal); J12.82 Pneumonia due to coronavirus disease 2019; J80 Acute respiratory distress syndrome; E87.1 Hypo-osmolality and hyponatremia; E44.0 Moderate protein-calorie malnutrition; S27.309A Unspecified injury of lung, unspecified, initial encounter; E87.8 Other disorders of electrolyte and fluid balance, not elsewhere classified; E86.9 Volume depletion, unspecified; D72.810 Lymphocytopenia; R74.01 Elevation of levels of liver transaminase levels; Z68.21 Body mass index [BMI] 21.0-21.9, adult; Y93.89 Activity, other specified; Y92.89 Other specified places as the place of occurrence of the external cause; Y99.8 Other external cause status
CPT/HCPCS: 36415; 71045; 80048; 80053; 82728; 83605; 83615; 83735; 84100; 84145; 85007; 85025; 86140; 87040; 87804; 94618; 94760; 96365; 96375; J1100; J1650; J2543; J2930; J7030; J7050; J7512; U0003; U0005; 99285-25; G0378